=== PATIENT | female | born 1950 | race Caucasian/White ===

== ENCOUNTER 2022-02-14 11:47 | Outpatient (REF) | payer MEDICARE, OTHER, SELFPAY ==
[2022-02-14 14:16] LABS: Blood Urea Nitrogen 17 mg/dL (9-16); Estimated Glomerular Filt Rate > 60
== END 2022-02-14 11:48 | disposition home or self-care (01) ==
LOC: HO.10HDL 11:47
PROVIDERS: Visit Provider Otolaryngology
DX: H91.92 Unspecified hearing loss, left ear (principal)
CPT/HCPCS: 36415; 82565; 84520

== ENCOUNTER 2022-02-27 11:01 | Outpatient (REF) | payer MEDICARE, OTHER, SELFPAY ==
--- NOTE | ~2022-02-27 | MR_ITS ---
EXAMINATION: MR BRAIN WITHOUT CONTRAST CLINICAL INFORMATION: Left-sided hearing loss. Left-sided acoustic neuroma. COMPARISON: None available. TECHNIQUE: Multiplanar, multisequence MRI of the brain was obtained using a skull base protocol without contrast. The patient declined contrast at the time of exam. FINDINGS: No focal restricted diffusion is demonstrated to suggest acute or subacute cerebral ischemia. No evidence of acute or chronic hemorrhagic products on heme-sensitive imaging. Scattered periventricular and deep white matter T2 FLAIR hyperintensities consistent with mild underlying microangiopathy. The ventricles are normal in morphology and size. No abnormal mass effect. No midline shift. Normal appearance of the pituitary gland. The cerebellar tonsils are mildly low lying, positioned 0.4 cm below the foramen magnum. The CSF space of the foramen magnum is maintained. No mass of the cerebellopontine angles. Normal appearance of the cranial nerve V, VII, and VIII nerve roots. No edema or vascular loops near the nerve root entry sites. Normal appearance of the internal auditory canals. Normal appearance of the labyrinthine structures without loss of T2 signal. Normal arterial and venous vascular flow voids are present. Normal, homogeneous marrow signal. Mild mucosal thickening of the paranasal sinuses. No signal abnormalities within the mastoids. MR/MR head/brain wo con IMPRESSION: No contrast was utilized for this exam. 1. No acute intracranial abnormalities. 2. Mild underlying microangiopathy. 3. No additional MRI abnormalities to explain the patient's symptoms.
== END 2022-02-27 11:02 | disposition home or self-care (01) ==
LOC: HO.MRI 11:01
PROVIDERS: Visit Provider Otolaryngology
DX: D33.3 Benign neoplasm of cranial nerves (principal); H90.42 Sensorineural hearing loss, unilateral, left ear, with unrestricted hearing on the contralateral side
CPT/HCPCS: 70551

== ENCOUNTER 2022-04-18 08:47 | Outpatient (REF) | payer MEDICARE, OTHER, SELFPAY ==
--- NOTE | ~2022-04-18 | MR_ITS ---
EXAMINATION: MR ANGIOGRAPHY HEAD CLINICAL INFORMATION: Pulsatile tinnitus and headache. COMPARISON: MRI scan of the brain 02/27/2022. TECHNIQUE: 3D time of flight MR angiography of the intracranial vasculature was obtained. Reformatted images were generated at the technologist workstation and source images were reviewed along with rotating MIPs. The degree of stenosis is based off NASCET criteria. FINDINGS: In the anterior circulation, the distal internal carotid arteries within the neck appear normal. The intracranial internal carotid arteries and their bifurcations appear normal. The A1 segment of the right anterior cerebral artery is uniformly thinner compared to the left, which is a normal variant. The bilateral middle and left anterior cerebral arteries demonstrate normal caliber with no evidence of focal stenosis, aneurysm or vascular malformation. The anterior communicating artery is normal. In the posterior circulation, the left vertebral artery is dominant, and the right vertebral artery ends primarily in the PICA. The vertebral arteries intradurally are patent bilaterally. The basilar artery appears normal. The posterior cerebral arteries have normal caliber; there is a origin of the right posterior cerebral artery. MR/MR angio head wo con IMPRESSION: 1. MR angiography of the intracranial circulation does not demonstrate focal stenosis, aneurysm or vascular malformation. The study is within normal limits.
== END 2022-04-18 08:48 | disposition home or self-care (01) ==
LOC: HO.MRI 08:47
PROVIDERS: Visit Provider Internal Medicine
DX: H93.A9 Pulsatile tinnitus, unspecified ear (principal); G44.52 New daily persistent headache (NDPH)
CPT/HCPCS: 70544

== ENCOUNTER 2022-04-26 14:44 | Outpatient (REF) | payer MEDICARE, OTHER, SELFPAY ==
--- NOTE | ~2022-04-26 | US_ITS ---
EXAMINATION: US EXTRACRANIAL CAROTID DUPLEX, BILATERAL CLINICAL INFORMATION: TIA. COMPARISON: None available. TECHNIQUE: Real-time ultrasound and Doppler techniques (integrating B-mode 2-D vascular images, Doppler spectral analysis and color-flow Doppler imaging) were utilized to interrogate the extracranial carotid arteries, the vertebral arteries and proximal subclavian arteries bilaterally. The degree of stenosis is determined by criteria similar to NASCET. FINDINGS: RIGHT SIDE: 1. There is no atherosclerotic plaque seen in the bifurcation/proximal ICA region. 2. The common carotid artery PSV proximally is 124 cm/s and distally 70 cm/s. 3. The proximal internal carotid artery velocities are 78 cm/s systolic and 22 cm/s diastolic. 4. The proximal external carotid artery PSV is 103 cm/s. 5. The vertebral artery shows antegrade flow. 6. The subclavian artery waveforms are normal. LEFT SIDE: 1. There is no atherosclerotic plaque seen in the bifurcation/proximal ICA region. 2. The common carotid artery PSV proximally is 107 cm/s and distally 83 cm/s. 3. The proximal internal carotid artery velocities are 99 cm/s systolic and 32 cm/s diastolic. 4. The proximal external carotid artery PSV is 93 cm/s. 5. The vertebral artery shows antegrade flow. 6. The subclavian artery waveforms are normal. US/US carotid duplex BI IMPRESSION: 1. RIGHT: Normal right internal carotid artery without atherosclerotic plaque or hemodynamically significant stenosis. 2. LEFT: Normal left internal carotid artery without atherosclerotic plaque or hemodynamically significant stenosis.
== END 2022-04-26 14:45 | disposition home or self-care (01) ==
LOC: HO.US 14:44
PROVIDERS: Visit Provider Internal Medicine
DX: G45.9 Transient cerebral ischemic attack, unspecified (principal)
CPT/HCPCS: 93880

== ENCOUNTER 2022-12-05 10:57 | Outpatient (REF) | payer MEDICARE, OTHER, SELFPAY ==
--- NOTE | ~2022-12-05 | XR_ITS ---
EXAMINATION: XR KNEE, LEFT CLINICAL INFORMATION: Pain COMPARISON: None available. TECHNIQUE: Three views of the left knee. FINDINGS: No acute visible fracture or dislocation. Mild multicompartment degenerative changes. Joint space alignment are otherwise maintained. No large knee joint effusion. Soft tissues are unremarkable. XR/XR knee LT 3V IMPRESSION: 1. No acute visible fracture or dislocation. 2. Mild multicompartment degenerative changes.
== END 2022-12-05 10:58 | disposition home or self-care (01) ==
LOC: HO.HOSX 10:57
PROVIDERS: Visit Provider Orthopaedic Surgery
DX: M25.562 Pain in left knee (principal)
CPT/HCPCS: 73562; 99202

== ENCOUNTER 2022-12-05 13:50 | Outpatient (AMB) | payer MEDICARE, OTHER, SELFPAY ==
--- NOTE | 2022-12-05 14:00 | MHC.OFFVIS ---
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 Patient reports on 08/08/22 she was sitting with her knee bent with getting up she had severe pain. States pain located at the anterior, posterior and lateral aspect of knee. She will have snapping with certain movements of leg. She will have stiffness and unable to perform certain yoga exercises. Finds little to no relief with Tylenol and icing. She is unable to take Motrin due to CLL. She has done physical therapy exercises which aggravated pain. Patient states that her knee will snap several times per day. Allergies Penicillins Allergy (Verified 12/05/22 14:09) Hives Sulfa (Sulfonamide Antibiotics) Allergy (Verified 12/05/22 14:09) Hives Medication List - Last Reconciled 12/05/22 by Arvind Pack MD lorazepam 0.5 mg PO DAILY PRN [facility] Social History (Updated 12/05/22 @ 14:09 by Batool Quiles Elvia) Patient Tobacco Use Status: Never used Tobacco Current occupational status: unemployed Physical Exam Vital Signs: BMI result Body Mass Index 23.0 Const Other: Well-nourished well-developed very friendly female awake alert and oriented x3 in no acute distress Extrem Other: Left knee examination shows a minimal effusion, minimal crepitus with range of motion, tenderness along her medial joint line, positive Laverne's test Results Reviewed Results Reviewed: X-rays of the patient's left knee show minimal diffuse joint space narrowing, no acute bony abnormalities Assessment & Plan Assessment & Plan (1) Left knee pain: Code(s): M25.562 - Pain in left knee Plan: Ms. Guillermo presents with left knee pain and mechanical symptoms most likely due to a tear of her medial meniscus. Thus, I will send the patient for MRI of her left knee for further evaluation. I will see her back once the MRI is completed to discuss the findings and treatment options. She will continue with her activity modifications in the meantime. I spent 20 minutes in reviewing the patient's records and imaging studies, seeing the patient and documenting in the medical record. Orders: Orders MR knee LT wo con Today S83.8X2A - Sprain of other specified parts of left knee, initial encounter Coding Level of Care Code New Pt Level 2 (66490) Diagnoses Left knee pain M25.562
[2022-12-05 14:08] VITALS: BMI 23.0
== END 2022-12-05 14:43 | disposition home or self-care (01) ==
PROVIDERS: Visit Provider Orthopaedic Surgery
DX: M25.562 Pain in left knee (principal)
CPT/HCPCS: 99202

== ENCOUNTER 2023-01-10 18:09 | Outpatient (REF) | payer MEDICARE, OTHER, SELFPAY ==
--- NOTE | ~2023-01-10 | MR_ITS ---
EXAMINATION: MR KNEE WITHOUT CONTRAST, LEFT CLINICAL INFORMATION: Left knee pain and crepitus. COMPARISON: Left knee radiographs dated 12/05/2022. TECHNIQUE: MRI of the left knee without contrast was performed using routine sequences on a high-field scanner. FINDINGS: MENISCI: Medial Meniscus: Intrasubstance degenerative signal within the meniscal body and posterior horn with an oblique tibial articular surface tear contacting the midportion of the posterior body and inner margin of the posterior horn. Lateral Meniscus: Intact. LIGAMENTS: Cruciate: Intact. Collateral: Intact. EXTENSOR MECHANISM: Intact. ARTICULAR CARTILAGE/BONE: Patellofemoral Compartment: Intact articular cartilage. Medial Compartment: Intact articular cartilage. Lateral Compartment: Intact articular cartilage. JOINT FLUID AND BURSAE: Trace joint effusion and trace Lopez's cyst. MR/MR knee LT wo con IMPRESSION: 1. Intrasubstance degenerative signal within the medial meniscal body and posterior horn with an oblique tibial articular surface tear contacting the midportion of the posterior body and inner margin of the posterior horn. 2/ Trace joint effusion and trace Lopez's cyst.
== END 2023-01-10 18:10 | disposition home or self-care (01) ==
LOC: HO.MRI 18:09
PROVIDERS: Visit Provider Orthopaedic Surgery
DX: S83.8X2A Sprain of other specified parts of left knee, initial encounter (principal)
CPT/HCPCS: 73721

== ENCOUNTER 2023-01-23 09:03 | Outpatient (AMB) | payer MEDICARE, OTHER, SELFPAY ==
--- NOTE | 2023-01-23 09:10 | A.OFFVIS_ITS ---
Intake Vital Signs 01/23/23 09:23 Height 5 ft 3 in Weight 130 lb BMI 23.0 Intake Visit Reasons: OV- LT knee MRI review Intake Note: Angella a 72 year old female presents today for an MRI review of left knee. She reports intermittent discomfort along the medial and anterior aspects of her left knee. She states that she has good days and bad days. She denies any constant pain. She states that at times she is able to sit on her foot without any discomfort. Her knee does seem to bother her later after she sits on her foot. She has not been doing much yoga. She has been swimming for exercise which does not seem to aggravate her knee. Allergies Penicillins Allergy (Verified 01/23/23 09:23) Hives Sulfa (Sulfonamide Antibiotics) Allergy (Verified 01/23/23 09:23) Hives Medication List - Last Reconciled 01/23/23 by Arvind Pack MD lorazepam 0.5 mg PO DAILY PRN PFSH Social History Patient Tobacco Use Status: Never used Tobacco Current occupational status: unemployed Physical Exam Vital Signs: BMI result Body Mass Index 23.0 Const Other: Well-nourished well-developed very friendly female awake alert and oriented x3 in no acute distress Extrem Other: Left knee examination shows minimal discomfort with range of motion, tenderness along her medial and lateral joint lines Results Reviewed Results Reviewed: MRI of the patient's left knee shows mild diffuse joint space narrowing as well as a tear along the anterior aspect of the lateral meniscus Assessment & Plan Assessment & Plan (1) Left knee pain: Code(s): M25.562 - Pain in left knee Plan Ms. Chatman presents with intermittent left knee pain due to early degenerative joint disease as well as a tear of her lateral meniscus. I had a lengthy discussion with the patient regarding the treatment options. We will hold off on an injection and arthroscopic surgery for now. Activity modific ations were discussed at length with the patient. She will follow up with me on an as-needed basis should her symptoms worsen in any way. I spent 20 minutes in reviewing the patient's records and imaging studies, seeing the patient and documenting in the medical record. Coding Level of Care Code Est Pt Level 2 (11265) Diagnoses Left knee pain M25.562
[2023-01-23 09:23] VITALS: BMI 23.0
== END 2023-01-23 09:35 | disposition home or self-care (01) ==
PROVIDERS: Visit Provider Orthopaedic Surgery
DX: M17.12 Unilateral primary osteoarthritis, left knee (principal); S83.282A Other tear of lateral meniscus, current injury, left knee, initial encounter
CPT/HCPCS: 99213

== ENCOUNTER → 2023-01-23 09:03 | Outpatient (BNVA) | payer MEDICARE, OTHER, SELFPAY | PROVIDERS: Visit Provider Orthopaedic Surgery | DX: M25.562 Pain in left knee (principal) | CPT/HCPCS: 99212 ==

== ENCOUNTER 2023-04-18 09:23 | Outpatient (REF) | payer MEDICARE, OTHER, SELFPAY ==
--- NOTE | ~2023-04-18 | CT_ITS ---
EXAMINATION: CT ABDOMEN AND PELVIS WITH CONTRAST CLINICAL INFORMATION: Abdominal pain. COMPARISON: None available. TECHNIQUE: Multidetector volumetric images were obtained from the superior aspect of the liver through the pubic symphysis following administration 85 mL of Omnipaque 350 intravenous contrast. Sagittal and coronal reformatted images were obtained on the technologist's workstation. Oral contrast: Yes This CT examination was performed using dose optimization techniques as appropriate, variously including the following: *Automated exposure control *Adjustment of mA and/or kV according to patient size (this includes techniques or standardized protocols for targeted exams where dose is matched to indication/reason for exam; i.e. extremities or head) *Use of iterative reconstruction technique DLP: 317 mGy-cm FINDINGS: LUNG BASES: The visualized lung bases are unremarkable. LIVER, GALLBLADDER, AND BILIARY TREE: The dome of the liver is not included in the [id number], but otherwise the liver appears normal. No discrete liver mass or ductal dilatation. The gallbladder is unremarkable with no evidence of radiopaque gallstones, gallbladder wall thickening, or obvious pericholecystic inflammatory changes. PANCREAS: No discrete pancreatic mass or pancreatic ductal dilatation. SPLEEN: The spleen appears mildly enlarged measuring up to 12.5 cm. ADRENAL GLANDS: No adrenal mass. KIDNEYS AND URETERS: The kidneys are normal in size, shape, and attenuation. No hydronephrosis, hydroureter, or calculi seen. No perinephric stranding. BLADDER: Unremarkable. GASTROINTESTINAL TRACT: The small and large bowel are normal in caliber. No acute inflammatory changes. No discrete bowel mass is seen. The appendix appears normal. ABDOMINAL WALL: No significant hernia is appreciated. LYMPH NODES: Mildly prominent lymph nodes measuring up to 1.3 cm celiac, 1.4 cm paraaortic, 1.2 cm left external iliac chain, 1.6 cm right external iliac chain. These may represent a low-grade lymphoproliferative disorder. VASCULAR: Mild aortic atherosclerosis. No aneurysm. PELVIC VISCERA: The uterus and adnexa are unremarkable. OSSEOUS STRUCTURES: Unremarkable. CT/CT abdomen pelvis w IV con IMPRESSION: Mildly prominent abdominal pelvic lymph nodes and mild splenomegaly. This raises the possibility of an underlying chronic lymphoproliferative disorder. Clinical correlation is necessary. No acute findings correlate with abdominal pain. Fleischner guidelines were followed.
[2023-04-18] MEDS: Barium Sulfate Oral (Berry) 450 ML ORAL.SUSP 900 ML PO (12:30)
[2023-04-18] MEDS: iohexoL 350 MG/ML 100 ML INFUS..BTL 85 ML IV (12:30)
[2023-04-19 06:25] LABS: Creatinine POC 0.8 mg/dL (0.5-1.4); GFR POC > 60
== END 2023-04-18 09:24 | disposition home or self-care (01) ==
LOC: HO.CT 09:23
PROVIDERS: PCP Physician Assistant; Visit Provider Physician Assistant
DX: R10.9 Unspecified abdominal pain (principal)
CPT/HCPCS: 74177; 82565; Q9967

== ENCOUNTER 2023-09-03 11:00 | Outpatient (RCR) | payer MEDICARE, OTHER, SELFPAY | END 2023-09-03 12:10 | disposition home or self-care (01) | LOC: HO.PT 11:00 | PROVIDERS: PCP Physician Assistant; Visit Provider Nurse Practitioner Women's Health | DX: M53.3 Sacrococcygeal disorders, not elsewhere classified (principal) | CPT/HCPCS: 97110; 97140; 97162; 97164; 97535 ==

== ENCOUNTER 2023-09-13 12:05 | Emergency (ER) | payer MEDICARE, OTHER, SELFPAY ==
--- NOTE | ~2023-09-13 | US_ITS ---
EXAMINATION: US VENOUS ULTRASOUND WITH DOPPLER LOWER EXTREMITY, RIGHT CLINICAL INFORMATION: Calf pain with posterior knee pain COMPARISON: None available. TECHNIQUE: Ultrasound of the deep veins is performed from the hip to the calf with compression sonography and color and pulse Doppler assessment. Spectral analysis with color-flow imaging is performed. FINDINGS: There is normal venous compression and respiratory variation and augmented flow. The visualized common femoral vein, superficial femoral vein, profunda femoral vein, popliteal vein, and the trifurcation region shows no evidence of deep venous thrombosis. There is no significant popliteal fossa cyst. The contralateral left common femoral vein appears normal. If the patient's symptoms persist, followup ultrasound in 5 days 7 days might be of value to exclude proximal propagation from a non-visualized calf vein. US/US venous duplex LE RT IMPRESSION: No DVT demonstrated in the right lower extremity.
[2023-09-13 12:25] VITALS: BP 166/77; PULSE 88; RESP 18; TEMP 36.7; O2SAT 98; BMI 23.2
--- NOTE | 2023-09-13 12:25 | ED_ITS ---
HPI - General Adult General Chief complaint: Extremity Injury, Lower Stated complaint: DVT? Time Seen by Provider: 09/13/23 15:51 Source: patient Mode of arrival: ambulatory Limitations: no limitations History of Present Illness ED Provider: GHAZALA SALDAÑA PA-C HPI narrative: 72 year old female with pmhx significant for CLL presents to the ED today for evaluation of right calf pain s/p flying from [facility] to [place] on Sunday (2 days ago). Endorses pain to right calf/ posterior knee exacerbated with ambulation. Not taking any OTC pain meds at home. Denies chest pain, shortness of breath, cough, hemoptysis. Related Data Home Medications ?Medication ?Instructions ?Recorded ?Confirmed lorazepam 0.5 mg tablet 0.5 mg PO DAILY PRN 12/05/22 01/23/23 Allergies Allergy/AdvReac Type Severity Reaction Status Date / Time Penicillins Allergy Hives Verified 09/13/23 12:29 Sulfa (Sulfonamide Allergy Hives Verified 09/13/23 12:29 Antibiotics) Review of Systems Review of Systems: Constitutional: No fever, chills, fatigue, night sweats, weight changes ENT/Mouth: No ear pain, hearing loss, nasal congestion, sinus pain, rhinorrhea, sore throat Eyes: No eye pain, swelling, redness, vision changes, discharge Cardio: No chest pain, palpitations, SNELL, orthopnea, peripheral edema Pulm: No SOB, cough, sputum, wheezing, dyspnea, hemoptysis GI: No nausea, vomiting, hematemesis, abdominal pain, diarrhea, constipation, hematochezia, melena : No irregular bleeding, dysuria, frequency, urgency, hesitancy, hematuria, flank pain, urinary flow changes, urinary incontinence or retention MSK: No back pain, neck pain, joint pain, myalgias, +right calf pain Skin: No lesions, rashes Neuro: No weakness, numbness, paresthesias, LOC, dizziness, headache Psych: No anxiety/panic, depression, SI/HI, AH/VH All other systems reviewed and are negative. [facility] Past Medical History Attestation statement: The following information was validated with the patient. Source: old records reviewed and nursing notes reviewed Social History Social History Patient Tobacco Use Status: Never used Tobacco Advance Directives: No Advance Directives Information Provided: No Do you have a plan to hurt others: No Plan Current occupational status: unemployed Physical Exam ED Vital Signs: Vital Signs - 24 hr 09/13/23 12:25 09/13/23 15:55 09/13/23 16:01 Temperature 98.1 F 97.3 F 97.3 F Pulse Rate 88 66 66 Respiratory Rate 18 16 16 Blood Pressure 166/77 H 138/63 138/63 Pulse Oximetry 98 98 98 Oxygen Delivery Method Room Air Room Air Room Air BMI result Body Mass Index 23.2 Vital signs stable Const General: cooperative, healthy appearing, comfortable and no acute distress Orientation/consciousness: patient oriented x3 Limitations: no limitations HENMT Head: Yes normal to inspection, Yes No palpable skull fracture present, Yes normocephalic and Yes atraumatic Eyes General: appearance normal, both eyes and all related structures Conjunctivae: conjunctivae normal Sclerae: sclerae normal EOM: EOMs intact bilaterally Neck Neck: Yes normal visual inspection Resp Effort & Inspection: normal respiratory effort and able to speak in complete sentences Auscultation: clear to auscultation bilaterally Cardio Other: No peripheral edema Rate: regular rate Rhythm: regular rhythm Skin General skin exam: no rashes or lesions noted Neuro General: patient oriented x3, gait normal, tone normal and no focal motor deficits Extrem Other: + right lower extremity without noted swelling or overlying skin changes including erythema or ecchymosis. Tender to palpation of right calf and posterior right knee without palpable mass or deformity. Full ROM intact to right knee and right ankle. Ambulating with steady gait. No peripheral edema. No pedal edema. Course Course Course Narrative: This is a Rapid Medical Examination (RME) performed by Nikki Saldaña PA-C in triage. Full HPI, ROS, assessment and treatment plan per primary provider in the Main ED. 72 yo female hx of CLL here w/ right calf pain s/p flying to [place] from [place] on Sunday (2 days ago). admits to pain w/ walking. denies cp, sob, cough, hemoptysis. + ttp of posterior right knee. minimal right calf tenderness. ambulating w/ steady gait. Plan: venous duplex Reevaluation(s) Reevaluation #1: 1600-- venous duplex of right lower extremity does not demonstrate VTE or popliteal fossa cyst. Discussed with patient. Advised anti-inflammatories for pain/discomfort. Advised to follow up with PCP. Patient has remained stable throughout ED visit today. Discussed worrisome signs and symptoms and when to return to the ED. All questions answered at this time. Patient is agreeable with disposition and stable for discharge. Medical Decision Making Medical Decision Making MDM Narrative: 72 year old female with pmhx significant for CLL presents to the ED today for evaluation of right calf pain s/p flying from [facility] to [place] on Sunday (2 days ago). Patient initially hypertensive, vitals otherwise WNL. She is nontoxic-appearing and in no acute distress. On exam, right lower extremity without noted swelling or overlying skin changes including erythema or ecchymosis. Tender to palpation of right calf and posterior right knee without palpable mass or deformity. Full ROM intact to right knee and right ankle. Ambulating with steady gait. No peripheral edema. No pedal edema. Differential diagnosis includes DVT, msk sprain/strain, bishop's cyst. Unlikely nv compromise, threat to limb, compartment syndrome, fracture, dislocation. Plan for venous duplex and re-evaluation. Differential Diagnosis Differential Diagnoses: The differential diagnosis associated with the presentation includes as above. Admission/Observation not indicated. Social Determinants Patient?s care significantly limited by Social Determinants of Health including: Other Social Determinant of Health Critical Care Time Critical Care Time Critical Care Time: No Discharge Plan Discharge Clinical Impression: Pain of right calf Patient Disposition: Home, Self-Care Instructions: Leg Pain (ED) Additional Instructions: The ultrasound of your right leg does not demonstrate clot or cyst. You may take tylenol/ motrin at home for pain/ discomfort. Follow up with PCP as needed. Return with new or worsening symptoms. In the case of an emergency call 911. Prescriptions: No Action lorazepam 0.5 mg tablet 0.5 mg PO DAILY PRN Interventions: ED Discharge Assessment Last Done: 09/13/23 16:01 Discharge Date/Time: 09/13/23 16:02 Print Language: Spanish
[2023-09-13 15:55] VITALS: BP 138/63; PULSE 66; RESP 16; TEMP 36.3; O2SAT 98
[2023-09-13 16:01] VITALS: BP 138/63; PULSE 66; RESP 16; TEMP 36.3; O2SAT 98
== END 2023-09-13 16:02 | disposition home or self-care (01) ==
PROVIDERS: Emergency Provider Student in an Organized Health Care Education/Training Program; PCP Physician Assistant
DX: M79.661 Pain in right lower leg (principal)
CPT/HCPCS: 93971; 99282; 99284

== ENCOUNTER 2024-03-11 12:54 | Outpatient (REF) | payer SELFPAY ==
--- OUTSIDE RECORDS SUMMARY | 2024-03-11 13:18 | XMS_ITS | Data Portability ---
Author Organization [facility] S GUALBERTO bateman SURGERY - [facility] Address [address] [place] [address] Assessment No assessment recorded. Plan of Treatment Reminders Order Date Submit Date Provider Last Modified By Organization Details Last Modified Time Details Appointments None recorded. Lab None recorded. Referral None recorded. Procedures None recorded. Surgeries None recorded. Imaging audiogram 2017 018 [email or web address] [place] [address], [place], [address], 8 15:36:40 tympanogra m 2017 018 [email or web address] [place] - [address], [place], [address], 8 15:36:40 audiogram 2019 020 MARY [place] - [address], [place], [address], 0 13:53:35 audiogram + tympanogra m 2020 021 [email or web address] [place] - [address], [place], [address], 1 15:58:28 Medication Orders Zithromax Z-Rito 250 mg tablet 2019 020 INTERFACE Not available 0 14:37:35 Patient TargetsNo targets recorded. Patient Instructions Encounter Date Encounter Id Patient Instructions Last Modified By Organization Details Last Modified Time 07/31/2017 [id number] 1. f/dejan 2. Annual audio 3. HAC in 6 months [email or web address] Not available 07/31/2017 15:01:13 Reason for Referral None Reported. Results Created Date Observation Date Name Description Value Unit Range Abnormal Flag Note LastModifiedBy Organization Detail LastModifiedTime 08/01/19 18 07/31/2017 tympa nogra m Right Type A Normal Not Available [place] - [address], [place], [address], 07/31/2017 15:00:19 08/01/19 18 07/31/2017 tympa nogra m Left Type A Normal Not Available [place] - [address], [place], [address], 07/31/2017 15:00:19 08/01/19 18 07/31/2017 audio gram Results: See Eyad zavala Result s Not Available [place] - [address], [place], [address], 07/31/2017 15:00:17 08/01/19 18 audio gram No observ ation record ed. BARCODE Not Available 2017 15:12:47 06/25/19 19 audio gram No observ ation record ed. BARCODE Not Available 2018 15:08:41 03/20/19 20 audio gram No observ ation record ed. BARCODE Not Available 2019 15:08:55 09/17/19 21 audio gram No observ ation record ed. BARCODE Not Available 2020 16:22:58 Result Notes None recorded. Problems Name Problem SNOMED Code Status Onset Date Resolution Date Notes Provider Name and Address Organization Details Recorded Time Sensorineu ral hearing loss 33436928 Active 2015 Not Available [facility] 7 09:39:51 Tinnitus of left ear 4158191329478 Active 2015 Not Available [facility] 7 09:39:51 Eustachian tube disorder 59037479 Active 2015 Not Available [facility] 7 09:39:51 Sensorineu ral hearing loss 10171381 Active 2014 Not Available [facility] 7 09:39:55 Deviated nasal septum 864658986 Active 2014 Not Available [facility] 7 09:39:55 Chronic rhinitis 86183488 Active 2014 Not Available [facility] 7 09:39:55 Impacted cerumen 22541229 Active 2015 Not Available [facility] 7 09:39:55 Tinnitus of left ear 7208602052074 Active 2015 Not Available [facility] 7 09:39:55 Dizziness and giddiness 665474630 Active 2015 Not Available [facility] 7 09:39:55 Problem Notes None recorded. Procedures Surgical History Date Name Laterality Status Provider Name and Address Organization Details Recorded Time 0 Audiogram Results [id number] completed DEBBIE JACOBS [facility]. 03/20/2019 16:43:25 0 Tympanogram Results [id number] completed DEBBIE JACOBS [facility]. 03/20/2019 16:43:35 8 Hearing Aid Fitting Follow Up completed DEBBIE JACOBS [facility]. 07/31/2017 14:58:17 8 Hearing Aid Fitting Follow Up completed DEBBIE JACOBS [facility]. 07/24/2017 14:09:14 7 Hearing Aid Fitting Follow Up completed DEBBIE JACOBS [facility]. 01/11/2017 14:28:39 7 Hearing Aid Fitting Follow Up completed DEBBIE JACOBS [facility]. 09/12/2016 16:18:31 7 Audio Results completed DEBBIE JACOBS [facility]. 09/12/2016 16:16:25 Imaging Results Imaging Date Name Status LastModified by Organiz ation Details LastModified Time 07/31/2017 audiogram completed BARCODE Information no t available 07/31/2017 15:12:47 06/24/2018 audiogram completed BARCODE Information no t available 06/24/2018 15:08:41 03/20/2019 audiogram completed BARCODE Information no t available 03/20/2019 15:08:55 09/16/2020 audiogram completed BARCODE Information no t available 09/16/2020 16:22:58 Procedure Notes None recorded. Medical Equipment None Reported. Allergies Allergen ID Allergen Name Allergen Category Reaction Reaction Severity Criticality Documentation Date Start Date Code Code System Note Provider Name and Address Organization Details Recorded Time 511710 Product containin g penicilli n and antibioti c (product) medicatio n Not available Not available Not available 07/12/20162014 36099 05 SNOMED Not Available [facility] 7 08:27:43 825766 Substance with sulfonami de structure and antibacte rial mechanism of action (substanc e) medicatio n Not available Not available Not available 07/12/20162014 95737 8003 SNOMED Not Available [facility] 7 08:27:43 446328 Levaquin medicatio n Not available Not available Not available 09/01/2016 96200 [address] Rx[address] [facility]. 7 11:12:58 Medications Name Sig Start Date Stop Date Status Note LastModified by Organization Details LastModified Time doxycycline hyclate 100 mg capsule Take 1 capsule twice a day by oral route. 03/20 completed Not Available Not Available Not Available clindamycin HCl 300 mg capsule 03/20 completed Not Available Not Available Not Available triamcinolo ne acetonide 0.5 % topical cream 09/11 completed Not Available Not Available Not Available azithromyci n 250 mg tablet TAKE 2 TABLETS BY MOUTH TODAY, THEN TAKE 1 TABLET DAILY FOR 4 DAYS active Not Available Not Available No t Available fluconazole 150 mg tablet active Not Available Not Available Not Available valacyclovi r 1 gram tablet TAKE 1 TABLET BY MOUTH EVERY 8 HOURS FOR 7 DAYS active Not Available Not Available No t Available prednisone 20 mg tablet 03/20 completed Not Available Not Available Not Available alendronate 70 mg tablet TAKE 1 (ONE) TABLET BY MOUTH WEEKLYWIT H PLENTY OF WATER STAY UPRIGHT FOR 30 MIN AFTER INGESTION . active Not Available Not Available No t Available fluorouraci l 5 % topical cream 09/11 completed Not Available Not Available Not Available valacyclovi r 500 mg tablet active Not Available Not Available Not Available triamcinolo ne acetonide 0.1 % topical cream active Not Available Not Available Not Available acyclovir 800 mg tablet active Not Available Not Available Not Available prednisone 10 mg tablets in a dose pack TAKE 6 TABLETS ON DAY 1 DIRECTED ON PACKAGE AND DECREASE BY 1 TAB EACH DAY FOR A TOTAL OF 6 DAYS active Not Available Not Available No t Available alprazolam 0.5 mg tablet TAKE 1 TABLET BY MOUTH AT BEDTIME NEEDED FOR SLEEP MAY REPEAT DOSE IN DAYTIME IF NEEDED active Not Available Not Available No t Available alprazolam 0.25 mg tablet TAKE 1 TABLET BY MOUTH AT BEDTIME NEEDED SLEEP active Not Available Not Available No t Available betamethaso ne valerate 0.1 % topical cream APPLY A THIN LAYER TO THE AFFECTED AREA(S) BY TOPICAL ROUTE 2XPER DAY NEEDED ITCHING/I NFLAMMATI ON active Not Available Not Available No t Available cephalexin 500 mg capsule TAKE 1 CAPSULE BY MOUTH THREE TIMES A DAY FOR 7 DAYS active Not Available Not Available No t Available erythromyci n 5 mg/gram (0.5 %) eye ointment active Not Available Not Available Not Available methylpredn isolone 4 mg tablets in a dose pack 03/20 completed Not Available Not Available Not Available cefdinir 300 mg capsule 03/20 completed Not Available Not Available Not Available doxycycline hyclate 100 mg tablet TAKE 1 TABLET BY MOUTH TWICE A DAY FOR 10 DAYS active Not Available Not Available No t Available Xanax 02/11 completed Not Available Not Available Not Available Zyrtec 10 mg capsule take 1 by Oral route once 02/11 completed Not Available Not Available Not Available Flonase Allergy Relief 50 mcg/actuati on nasal spray,suspe nsion [place] 2 sprays every day by intranasa l route. 2016 active Not Available Not Available Not Avai lable Otovel 0.3 %-0.025 % (0.25 mL) ear solution INSTILL 0.25 MILLILITE R INTO AFFECTED EAR(S) BY OTIC ROUTE EVERY 12 HOURS FOR 7 DAYS 03/20 completed Not Available Not Available Not Available Shingrix (PF) 50 mcg/0.5 mL intramuscul ar suspension, kit active Not Available Not Available Not Available Vitals Date Recorded Body height Heart rate Systolic blood pressure Diastolic blood pressure Provider Name and Address Organization Details Last Updated DateTime 03/20/2019 160.02 cm 77 /min 121 mm[Hg] 71 mm[Hg] ANGELINA JOSE [facility]. 03/20/2019 13:42:28 Date Recorded Body height Provider Name an d Address Organization Details Last Updated DateTime 09/15/2020 160.02 cm Maria Luisa Hernandez [facility]. 09/15/2020 11:22:25 Social History Question Answer Notes LastModified by Organizat ion Details LastModified Time What Was The Date Of Your Most Recent Tobacco Screening? 03/20/2019 [email or web address] Information not available 03/20/2019 Sex: Unknown Functional Status None recorded. Mental Status None recorded. Family History Nothing Reported. Medical History Condition Response Coronary Artery Disease N Gout N Blood Diseases N Tonsil Infections Y Emphysema N Hives N Hospital Admission Other Than N Wheezing N Depression Y COPD N Glaucoma N Pneumonia N Developmental or Behavioral Disorders N Defects or Inherited Disease N Nasal or Sinus Problems N Pacemaker N Difficulty Swallowing Y High Blood Pressure/Hypertension N Anesthesia Complications N Anxiety Disorder N Muscle, Joint, or Bone Problems N Obesity N Vision or Eye Problems N Hearing Loss Y Arthritis Y Head Injury/Concussion N Blood Clot N Congenital Anomalies N Dysphagia N Acid Reflux (GERD) N Cancer Y Melanoma Y Stroke N Snoring N Hoarseness N Bladder or Kidney Problems Y Shortness of Breath N High Cholesterol N Skin Cancer N Headaches Y Fibromyalgia Y Speech Delay N Kidney Disease N Allergies/Hayfever N Pituitary Disorder N Squamous Cell Carcinoma N Heart Conditions N Migraines Y Thyroid Problems N Developmental Delay N ADD/ADHD N Skin Problems N Anemia N Immune System Disorder N Constipation N Heart Attack (NM) N Other Skin Condition N Mental Illness N Diabetes Y Bedwetting N Bleeding Disorder Y Food Allergy N Seizures/Epilepsy N Epistaxis N Tuberculosis N AIDS/HIV N Eczema N Tinnitus N Asthma N Nasal polyps N Basal Cell Carcinoma Y Vertigo N Sleep Disorder Y Hepatitis N Heart Disease N Bronchitis N Pulmonary Embolism N PCOS N Chronic Ear Infections Y Chicken Pox Y Autism Spectrum Disorder (ASD) N Gynecological HistoryNo gynecological history recorded. Obstetrics History GPAL:G 0 P 0 0 0 0 Past Encounters Encounter ID Performer Location Encounter Start Date Encounter Closed Date Diagnosis/Indication Diagnosis SNOMED-CT Code Diagnosis ICD10 Code Diagnosis Note [id number] CECILY MARTINEZ [facility] [place] - [address] [facility] [address] [place] [address] 09/01/2016 10:44:46 09/01/2016 11:47:17 Eustachian tube disorder 65381718 H69.92 [id number] ZOILA HUMPHRIES [facility] [place] - [address] [facility] [address] [place] [address] 09/11/2016 10:33:32 09/11/2016 12:52:47 Eustachian tube disorder 77745154 H69.92 Sensorineu ral hearing loss of bilateral ears 743380509 H90.3 Anterior c ervical lymphadenopathy 965751726 R59.0 [id number] [facility]RIES [facility] - [address] [facility] [address] [address] [place] [address] 09/12/2016 14:05:29 09/14/2016 08:24:49 Sensorineural hearing loss 57461905 H90.5 Sensorineu ral hearing loss of bilateral ears 914457306 H90.3 [id number] [facility] [address] [facility] [address] [place] [address] 01/11/2017 12:56:14 01/11/2017 15:27:13 [id number] DEBBIE LUIZ[facility] [place] - [address] [facility] [address] [place] [address] 07/24/2017 13:01:54 07/30/2017 03:46:22 [id number] DEBBIE LUIZ[facility] [place] - [address] [facility] [address] [place] [address] 07/24/2017 13:02:10 07/29/2017 21:25:40 [id number] DEBBIE PEGTATYANA-[facility] [place] [address] [address] 07/31/2017 14:20:59 07/31/2017 15:36:39 Sensorineural hearing loss of bilateral ears 497530257 H90.3 [id number] JASON CRUZ [facility] [place] - [address] [address] 03/20/2019 13:17:37 03/20/2019 14:56:32 Asymmetrical hearing loss 735124405 H91.92 very min asymmetry, testing with less asymmetry than expected by symptoms. will have hearing aids adjusted and have f/u with audiology. tentative f/u with me in 3 mos Sensorineu ral hearing loss of bilateral ears 835791279 H90.3 Otalgia of left ear 1089 406570 347637 H92.02 No infection noted. minimal erythema over the malleus but no middle ear fluid or pus. zpack with worsening (GI upset with omnicef in the past) [id number] [facility] [place] [facility] [address] [address] 03/20/2019 14:13:05 03/20/2019 16:08:01 Sensorineural hearing loss of bilateral ears 073390720 H90.3 [id number] JASON CRUZ [facility] [place] - [address] [address] 09/15/2020 11:16:13 09/16/2020 08:05:21 Sensorineural hearing loss 07002522 H90.5 cont CONTRERAS use. past audios reviewed Otalgia of right ear 112 1161972 841250 H92.01 intermitte nt. no clear etiology. unable to take NSAIDs. Conservati ve measures were discussed. consider imaging, discussed, hold off currently. she is moving soon ([facility]). plans to f/u here prn. would get imaging with persistent pain. Health Concerns Section Related Observation LastModified by Organization Detai ls LastModified Time None Recorded Concern Status LastModified by Organization Details LastModified Time None Recorded Advance Directives Directive None Recorded Payers Encounter Date Sequence Insurance Name Policy Number Policy Paulson Covered Member ID Paulson Member ID Guarantor Name 07/24/2017 1 [place] Angella A Compa [id number] Angella Compa 07/24/2017 2 [employer] Angella A Compa [id number] Angella Compa 07/31/2017 [place] Angella A Compa [id number] Angella Compa 07/31/2017 2 [employer] Angella A Compa [id number] Angella Compa 03/20/2019 1 [place] Angella A [place]a [id number] Angella Compa 03/20/2019 2 [employer] Angella A Compa [id number] Angella Compa 03/20/2019 1 [place] Angella A Compa [id number] Angella Compa 03/20/2019 2 [employer] Angella A Compa [id number] Angella Compa 09/15/2020 1 [place] Angella A Compa [id number] Angella Compa 09/15/2020 2 [employer] Angella A Compa [id number] Angella Compa Notes Date Note Type Note Provider Name and Address Organization Details Recorded Time 03/20/2019 text/html Ear Pain/InfectionRepor rita bypatient.Location: earache left;ear fullness left;loss of hearing bilateral(patient wears jaren hearing aids); c/o swollen gland back of neck Onset/Timing:progre ssively worse over last 3months Duration:ongoing fullness Quality:aching pain;dull pain Severity:interferin g with social activities;difficul ty understanding speech Context:recent sick contacts Alleviating factors:nothing gives relief Aggravating factors:nothing makes it worse Associated Symptoms:nasal congestion(mild);na libby discharge(mild); c/o feeling off balance Pt has been having some decreased hearing on the left for a few months but seems worse lately. some pain and worsening fullness. wears HAs. Flat tymps yesterday noted by audiology. Ct with CLL ARLENE Weiss - [facility]. 03/20/2019 15:14:35 09/15/2020 text/html 69 y/o female present today for hearing loss. sees audiology intermittently, has HAs. needs updated audio. some intermittent right otalgia, present for years, melissa if she presses on the area. has seen other providers as well. not nec bothersome when sleeping on it. ARLENE Weiss - [facility]. 09/15/2020 12:25:03 OBGyn Episode No OBEpisode recorded.
--- NOTE | 2024-03-12 09:14 | MHC.AU.HA1 ---
Hearing Aid Evaluation Date of Visit: 03/11/24 Historical Information: Description of Hearing: Mild sloping to moderately-severe sensorineural hearing loss, bilaterally Current personal amplification information: Phonak Audeo L90-RL from [facility] Summary: Fit with new Phonak HAs about one year ago at [facility] but has never been satisfied with them - speech not clear, constantly asking for repetition. Previous Linda user, reportedly never had issues with that pair. Has returned to [facility] multiple times for adjustments, has upcoming appointment next week but scheduled this appointment as 2nd opinion. Provided updated hearing test from Dr. Dolan's office. Per Joon Perales, harness installer at Dr. Dolan's office, recommended new HAs; however, he is reportedly retiring and did not want to get started with her. Considering purchasing back up pair. Advised current Phonak HAs are efl-mu-dco-line devices. Do not recommend new HAs at this time; however, Angella may be interested in trying a different child and youth program assistant. Discussed hearing loss, speech discrimination, importance of programming/real ear, effects of acoustic coupling, etc. Reportedly tried power dome but could not acclimate to physical fit. [facility] reportedly recommended CI, also tried [employer] system but ended up returning it. Do not have any previous evaluations to review/compare to current test. Still has service agreement through [facility]. Discussed options (e.g., returning to [facility], cleaning/reprogramming current HAs here, quoted $90.00). After 40 minute discussion, Angella opted to forgo any services today and ultimately decided to attend her appointment at [facility] next week but plans to return here if problems persist. Action Taken/Action Needed: Angella will schedule another appointment for Hearing Aid Problem and/or Hearing Aid Consultation pending results of upcoming appointment at [facility]. Primary Diagnosis: H90.3 Bilateral Sensorineural Hearing Loss Signature: Provider: Hector White, [facility]
== END 2024-03-11 12:55 | disposition home or self-care (01) ==
LOC: HO.HAP 12:54
PROVIDERS: PCP Physician Assistant; Visit Provider Otolaryngology
DX: Z13.89 Encounter for screening for other disorder (principal)

== ENCOUNTER 2024-06-23 09:56 | Emergency (ER) | payer MEDICARE, OTHER, SELFPAY ==
--- NOTE | ~2024-06-23 | CT_ITS ---
CLINICAL HISTORY: fall CT cervical spine without contrast Comparison: None Findings: Mild multilevel anterolisthesis and retrolisthesis, degenerative. No fracture. Multilevel degenerative change is most prominent at C5/C6 with moderate to severe central spinal canal stenosis. No epidural hematoma. Normal thickness of the prevertebral soft tissues. Mild apical scarring. Impression: No acute findings. This document has been electronically signed by: Ciera Boykin MD on 06/23/2024 17:43:02
--- NOTE | ~2024-06-23 | US_ITS ---
EXAMINATION: US TRIPLEX LOWER EXTREMITY, BILATERAL CLINICAL INFORMATION: Edema and pain both lower extremities. COMPARISON: None available. TECHNIQUE: Color-flow triplex imaging with spectral analysis and compression Doppler were performed on the bilateral lower extremities. FINDINGS: There is normal compressibility or respiratory augmentation throughout the interrogated veins of the lower extremities from the common femoral veins to the posterior tibialis veins. There is no Lopez's cyst. US/US venous duplex LE BI IMPRESSION: Occlusive thrombus extending throughout the interrogated veins of both lower extremities. Positive DVT exam. The supervisor microbiology technologists communicated with the requesting physician assistant laboratory director in the emergency department (Paulina Carlson) at the time of the examination. Electronically signed by: Louis French MD 06/23/2024 01:56 PM EDT
--- NOTE | ~2024-06-23 | MR_ITS ---
CLINICAL HISTORY: eval for bleeding. known met dz. MR Brain with and without gadolinium Comparison: CT/SR - CT HEAD/BRAIN WO IV CON - 06/23/24 16:21 EDT Findings: No restricted diffusion. Left paramedial valerie, peripherally enhancing centrally hemorrhagic lesion measuring 1.5 x 1.7 cm with moderate surrounding vasogenic edema. No additional lesion is seen. No midline shift. No hydrocephalus. Vascular flow voids are intact. Orbital contents are unremarkable. The sinuses and mastoid air cells are clear. No focal bone lesion. IMPRESSION: Left paramedial valerie 1.7 cm peripherally enhancing hemorrhagic lesion with moderate surrounding vasogenic edema. Given patient's history, findings most likely represent solitary metastatic disease. No ventriculomegaly or midline shift. No evidence of acute ischemia or acute intracranial hemorrhage. This document has been electronically signed by: Lucero Kee MD on 06/23/2024 21:28:05
--- NOTE | ~2024-06-23 | XR_ITS ---
EXAMINATION: XR LUMBOSACRAL SPINE CLINICAL INFORMATION: pain, injury COMPARISON: None available. TECHNIQUE: Three views of the lumbosacral spine. FINDINGS: No acute cortical disruption. No gross malalignment. Marginal osteophyte formation and endplate sclerosis at L3-4, L4-5 and L5-S1 level. No lytic or blastic lesions. XR/XR lumbar spine 2-3V IMPRESSION: Spondylosis without acute fracture or gross listhesis. Electronically signed by: Louis French MD 06/23/2024 01:54 PM EDT
--- NOTE | ~2024-06-23 | CT_ITS ---
CLINICAL HISTORY: metastatic CA, ++DVT study. ?R rib fx s p fall CTA chest with 3-D postprocessing Comparison: None Findings: Study quality is adequate for the diagnosis of pulmonary embolism. Acute bilateral pulmonary emboli are seen in distal main pulmonary arteries, vgnck-[id number]-left, and within the segmental and subsegmental arteries in each lobe, most prominent in the lower lobes. Heart size within normal limits. RV/LV ratio is normal. No calcified coronary artery disease. No aortic dissection or aneurysm. Trace calcified atherosclerotic disease. Mediastinal and hilar lymphadenopathy measures up to 1.1 cm in short axis. Right chest wall central venous catheter with the tip terminating at the cavoatrial junction. Trace biapical scarring. Right upper lobe nodule measuring 2.0 x 2.3 x 1.8 cm. Consolidation in the lower lobes at the lung bases, greater in the left lower lobe. Nodular/patchy consolidation in right middle lobe and lingula. Mild amount of bilateral ground-glass opacity. No pneumothorax or pleural effusion. No acute osseous or soft tissue abnormality. No right rib fractures or chest wall hematoma. No evidence of osseous metastatic disease. No acute pathology in the imaged portion of the upper abdomen. Small hiatal hernia. Impression: Acute bilateral pulmonary emboli without right heart strain. Bilateral consolidation, Nodular/patchy consolidation and ground-glass opacity could be secondary to multifocal infection and/or pulmonary ischemia/ infarction. A posttraumatic etiology is considered less likely. Consolidation obscuring metastatic disease could be considered. Right upper lobe nodule measuring 2.3 cm which is favored to be metastatic disease. This document has been electronically signed by: Ciera Boykin MD on 06/23/2024 17:54:13
--- NOTE | ~2024-06-23 | CT_ITS ---
CLINICAL HISTORY: RUQ abd pain fall. metastatic CA CT abdomen and pelvis with contrast Comparison: 04/18/23 Findings: Consolidation in the lung bases. Unremarkable gallbladder and bladder. Subcentimeter low attenuating lesion in the spleen, also present on the prior study. The spleen measures 10.5 cm in craniocaudal dimension, which is within normal limits. The other solid organs are unremarkable. Small hiatal hernia. No bowel wall thickening or dilation. A normal appendix is identified. Colonic diverticulosis. No aneurysm. Mild calcified atherosclerotic disease. No lymphadenopathy. No ascites. No acute osseous abnormality. The lower right ribs are intact. No osseous lesion to indicate metastatic disease. Impression: Consolidation in the lung bases could be secondary to pulmonary ischemia /infarction and/or multifocal infection. No acute findings in the abdomen and pelvis. This document has been electronically signed by: Ciera Boykin MD on 06/23/2024 17:56:46
--- NOTE | ~2024-06-23 | CT_ITS ---
CLINICAL HISTORY: fall CT head without contrast Comparison: MR/SR - MR ANGIO HEAD WO CON - 04/18/22 09:24 EDT MR/SR - MR HEAD/BRAIN WO CON - 02/27/22 11:30 EST Findings: There is a new lesion in the valerie which measures 1.8 x 1.3 x 2.1 cm (measured on series 10, image 21 and series 19, image 66 ) ). The lesion is centrally CSF attenuation likely indicating a cystic component. Peripherally it is increased in attenuation which may indicate blood products. Surrounding decreased attenuation to indicate edema is not definitively visualized. No significant mass effect upon 4th ventricle. No other lesions are identified. No extra-axial fluid collection. No hydrocephalus, midline shift or herniation. Murray-white differentiation is maintained. White matter is within normal limits for age. No acute orbital pathology. No acute soft tissue abnormality. No fracture. Small amount of fluid and foamy secretions in the paranasal sinuses with trace mucosal thickening may indicate sinusitis. The mastoid air cells are clear. Impression: New 2.1 cm cystic lesion in the valerie favored to be metastatic disease given the patient's history of malignancy. Peripheral increased attenuation could be blood. Evaluate further with brain MR with and without contrast, the urgency of which depends on the clinical picture. No significant mass effect upon the 4th ventricle or hydrocephalus. This document has been electronically signed by: Ciera Boykin MD on 06/23/2024 17:40:47
[2024-06-23 10:40] VITALS: BP 139/69; PULSE 99; RESP 18; TEMP 36.8; O2SAT 95; BMI 23.8
--- NOTE | 2024-06-23 12:22 | ED.GENADULT ---
HPI - General Adult General Chief complaint: General Medical Stated complaint: SOB Leg pain Time Seen by Provider: 06/23/24 14:17 Source: patient, family, RN notes reviewed and old records reviewed History of Present Illness ED Provider: Daya Rosario PA-C HPI narrative: 73-year-old female with past medical history CLL, metastatic melanoma on immunotherapy, presenting to the ED complaining of right-sided lower back/side pain s/p mechanical fall at home 6 days ago. Also reports bilateral leg tightness x few days and intermittent SOB x awhile. Admits tripped and fell into bureau, denies head trauma/LOC or symptoms prior to fall including lightheadedness/dizziness. Denies headache, chest pain, abdominal pain, nausea/vomiting. Denies anticoagulation use. Related Data Home Medications ?Medication ?Instructions ?Recorded ?Confirmed lorazepam 0.5 mg tablet 0.5 mg PO DAILY PRN 12/05/22 01/23/23 Allergies Allergy/AdvReac Type Severity Reaction Status Date / Time Penicillins Allergy Hives Verified 06/23/24 10:48 Sulfa (Sulfonamide Allergy Hives Verified 09/13/23 12:29 Antibiotics) Review of Systems Review of Systems: Yes all other systems are reviewed and are negative Constitutional: Constitutional: Reports as per [facility] Past Medical History Attestation statement: The following information was validated with the patient. Source: old records reviewed Social History Social History Patient Tobacco Use Status: Never used Tobacco Smoked in Last 30 Days: No Use of substances other than those prescribed or required for medical reasons: No Advance Directives: No Advance Directives Information Provided: Yes Current occupational status: unemployed Physical Exam ED Vital Signs: Vital Signs - 24 hr 06/23/24 10:40 06/23/24 15:18 06/23/24 15:40 Temperature 98.3 F 98.2 F 98.3 F Pulse Rate 99 88 98 Respiratory Rate 18 14 18 Blood Pressure 139/69 129/69 125/58 L Pulse Oximetry 95 97 96 Oxygen Delivery Method Room Air Room Air Room Air 06/23/24 19:21 06/24/24 00:24 06/24/24 02:28 Temperature 98.2 F Pulse Rate 86 92 91 Respiratory Rate 17 16 20 Blood Pressure 139/72 144/74 H 121/64 Pulse Oximetry 99 96 93 Oxygen Delivery Method Room Air Room Air Room Air 06/24/24 03:25 Temperature 98.2 F Pulse Rate 91 Respiratory Rate 20 Blood Pressure 121/64 Pulse Oximetry 93 Oxygen Delivery Method Room Air BMI result Body Mass Index 23.8 Const General: cooperative and no acute distress Orientation/consciousness: patient oriented x3 Limitations: no limitations HENMT Head: Yes normal to inspection and Yes atraumatic Ears: hearing grossly normal bilaterally General nose exam: Normal external nose present Face and sinus: Yes normal facial exam Eyes General: appearance normal, both eyes and all related structures EOM: EOMs intact bilaterally Neck Neck: Yes normal visual inspection and Yes no meningeal signs Chest Other: +ecchymosis noted to right anterior lateral lower ribs/chest wall with reproducible tenderness. No flail chest. No crepitus. Resp Effort & Inspection: normal respiratory effort and no respiratory distress Auscultation: clear to auscultation bilaterally, no crackles, no rales, no rhonchi and no wheezes Cardio Rate: regular rate Heart sounds: S1 normal heart sound present and S2 normal heart sound present GI Inspection: Yes normal to inspection Palpation (GI): Soft to palpation, Tenderness to palpation present (GI) in the RUQ; with no rebound tenderness, no guarding and not rigid Back/Spine/Pelvis Other: No midline cervical/thoracic/lumbar spinous tenderness/step-off or deformity Skin Rashes: no rashes Wounds: no wounds Neuro General: patient oriented x3, tone normal, moves all extremities, no meningeal signs, no focal motor deficits and CN's II-XI intact bilaterally Cranial nerves: Yes CN's II-XII intact bilaterally Gait exam (Neuro): Normal gait present Extrem Other: 1+ bilaterally General: Yes normal to inspection and Yes edema Course Course Course Narrative: RME performed by Paulina Carlson PA-C. Patient is a 73 year old assigned female at presenting to the emergency department with low back pain after a fall. Detailed physical exam and review of systems are deferred to the finishing wire sawyer. Patient placed back in the waiting room pending room availability and results. -1537--leukocytosis of 67.0 > patient with known CLL. Low suspicion for severe sepsis at this time -AST/ALT elevated, no priors to compare. Troponin 5.3 > will obtain 3 hour repeat -viral testing negative XR lumbar spine 2-3V IMPRESSION: Spondylosis without acute fracture or gross listhesis. US venous duplex LE BI IMPRESSION: Occlusive thrombus extending throughout the interrogated veins of both lower extremities. Positive DVT exam. The certified cytotechnologist communicated with the requesting physician leasing assistant in the emergency department (Paulina Carlson) at the time of the examination. > case discussed with Dr. Kulkarni, vascular, recommended starting heparin. Will wait until head CT results. Patient with known brain mets. 1749--CT head/brain wo IV con Impression: New 2.1 cm cystic lesion in the valerie favored to be metastatic disease given the patient's history of malignancy. Peripheral increased attenuation could be blood. Evaluate further with brain MR with and without contrast, the urgency of which depends on the clinical picture. No significant mass effect upon the 4th ventricle or hydrocephalus. ADDENDUMThis document has been electronically signed by: Ciera Boykin MD on 06/23/2024 17:40:47 ADDENDUM:Peripheral increased attenuation is favored to be enhancement, as contrast was administered for the chest, abdomen and pelvis exams. > will obtain brain MRI with and without contrast for further evaluation >> holding initiating heparin until brain MRI results CT cervical spine wo IV con Impression: No acute findings. 1755--CT angio chest PE protocol Impression: Acute bilateral pulmonary emboli without right heart strain. Bilateral consolidation, Nodular/patchy consolidation and ground-glass opacity could be secondary to multifocal infection and/or pulmonary ischemia/ infarction. A posttraumatic etiology is considered less likely. Consolidation obscuring metastatic disease could be considered. Right upper lobe nodule measuring 2.3 cm which is favored to be metastatic disease. > will obtain blood cultures, lactic and initiate empiric IV antibiotics. Infection now suspected [1800] CT abdomen pelvis w IV con Impression: Consolidation in the lung bases could be secondary to pulmonary ischemia/infarction and/or multifocal infection. No acute findings in the abdomen and pelvis. -1809--ED care transferred to [facility] pending brain MRI & dispo per results Reevaluation(s) Reevaluation #1: Queenie Valdovinos NP date: 06/23/2024 time: 23:00 given the presence of the hemorrhagic lesion within the brainstem I felt it best that I consult with her oncologist before decision is made for heparinization or not. I contacted [facility] as she follows with Dr. Jun Bull, i spoke with fellow Madeleine Sepulveda who ultimately consulted directly with Dr. Bull, it was felt that given the lesion had been previously treated with radiation the risk of hemorrhagic bleeding would be low and recommends starting heparin infusion without a heparin bolus to that she may subsequently be transferred to [facility]. If she were to be started on heparin, our hospitalist service do not feel that she would be a candidate for admission to the medicine floor as she would require frequent neuro checks given the presence of the brainstem lesion. Unfortunately, we do not have ICU beds available at this time. MR Brain with and without gadolinium Comparison: CT/SR - CT HEAD/BRAIN WO IV CON - 06/23/24 16:21 EDT Findings: No restricted diffusion. Left paramedial valerie, peripherally enhancing centrally hemorrhagic lesion measuring 1.5 x 1.7 cm with moderate surrounding vasogenic edema. No additional lesion is seen. No midline shift. No hydrocephalus. Vascular flow voids are intact. Orbital contents are unremarkable. The sinuses and mastoid air cells are clear. No focal bone lesion. IMPRESSION: Left paramedial valerie 1.7 cm peripherally enhancing hemorrhagic lesion with moderate surrounding vasogenic edema. Given patient's history, findings most likely represent solitary metastatic disease. No ventriculomegaly or midline shift. No evidence of acute ischemia or acute intracranial hemorrhage. Queenie Valdovinos NP 06/23/2024 23:45 - myself as well as my attending Dr. Hinojosa had an extensive conversation with patient and her son who was present at bedside regarding the potential risks and complications of heparinization given the presence of her hemorrhagic brain lesion as well as the risks and potential complications of not heparinizing for the treatment of her DVT/PE. We discussed the potentially life-threatening complications of both scenarios. Reviewed that should she begin to experience symptoms of hemorrhagic brain bleeding, that we would offer her treatment with reversal agent protamine sulfate, available in the ED. after extensive conversation, they have made a decision that they would like to pursue starting heparin, and have verbalized the understanding of potential life threatening complications. She will be started on Heparin Low Dose Infusion Protocol. Queenie Valdovinos NP 06/24/2024 00:35 - [facility] is currently close to ICU transfers, will attempt to contact [facility] Queenie Valdovinos NP 06/24/2024 00:45 - [facility] in [place] closed to ICU transfer, Will attempt to contact [facility] Queenie Valdovinos NP 06/24/2024 01:00 - Information provided to [facility] transfer center, awaiting callback Queenie Valdovinos NP 06/24/2024 01:38 - remains on heparin infusion at this time. No focal neurological deficits. Vital signs stable. Queenie Valdovinos NP 06/24/2024 02:04 - spoke with Dr. Regan ICU attending at [facility], patient is accepted for transfer. Reviewed this with patient and her son at bedside they are agreeable to transfer at this time. Will arrange for ALS transfer. Have instructed nursing staff to call report to [phone] Medications Administered Discontinued Medications Generic Name Dose Route Start Last Admin Trade Name Freq PRN Reason Stop Dose Admin Gadobutrol 7.5 ml 06/23/24 20:40 06/23/24 20:41 Gadobutrol 7.5 Ml Vial IVPUSH 06/23/24 20:41 6 ml ONCE ONE Administration Sodium Chloride 500 mls @ 999 mls/hr 06/23/24 18:00 06/23/24 19:55 Ns IV 06/23/24 18:30 Infused .Q31M ILSA Infusion Cefepime HCl 2 gm in 50 mls @ 100 mls/hr 06/23/24 17:59 06/23/24 19:22 Maxipime IV 06/23/24 18:28 Infused ONCE ONE Infusion Heparin Sodium/Sodium Chloride 25,000 unit in 250 mls @ 0 mls/hr 06/24/24 00:15 06/24/24 00:38 Heparin Sodium,Porcine/1/2ns IVCONT 12 units/kg/hr .Q0M ILSA 7.08 mls/hr Administration Protocol Per Protocol Iohexol 85 ml 06/23/24 16:51 06/23/24 16:51 Iohexol 350 Mg/Ml 100 Ml Infus..Btl IV 06/23/24 16:52 85 ml ONCE ONE Administration Medical Decision Making Medical Decision Making MDM Narrative: 73-year-old female with past medical history CLL, metastatic melanoma on immunotherapy, presenting to the ED complaining of right-sided lower back/side pain s/p mechanical fall at home 6 days ago. Also reports bilateral leg tightness x few days and intermittent SOB x awhile. On exam vital signs stable, NAD, nontoxic appearing, lungs CTA, abdomen is soft with RUQ tenderness, ecchymosis noted to right anterior lateral lower ribs without evidence of flail chest. No midline spinous tenderness. 1+ bilateral LE edema noted. Concern for rib fracture vs contusion vs liver laceration/hematoma. Concern for DVT/PE. Rule out pneumonia and CHF. Unlikely ACS/dissection Plan: EKG, labs, viral testing, x-rays, CT, ultrasound, anticipated admission Please refer to course for remaining clinical decision making, interpretation of labs/imaging results, and discussions with consultants and/or family members. Differential Diagnosis Differential Diagnoses: The differential diagnosis associated with the presentation includes As above Admission/Observation Consideration of admission/observation: Escalation of care including admission/observation considered Consult Healthcare Provider Management of the patient was discussed with: Helpdesk Administrator (Vascular) Lab Data MDM Lab Attestation statement: I reviewed the patient's lab results. 06/24/24 00:31 06/23/24 13:01 Labs: Lab Results 06/23/24 06/23/24 06/23/24 Range/Units 13:01 15:18 17:12 WBC 67.0 H* (4.8-10.8) X10*3/uL RBC 3.82 L (4.20-5.50) X10*6/uL Hgb 12.1 (12.0-16.0) g/dl Hct 38.3 (37.0-47.0) % MCV 100.3 H (80.0-98.0) fL MCH 31.7 (27.0-33.0) pg MCHC 31.6 (31.0-35.0) g/dl RDW 15.7 (11.0-16.0) % Plt Count 158 L (160-400) X10*3/uL MPV 10.2 (9.4-12.3) fL Immature Gran % (Auto) Cancelled Neut % (Auto) Cancelled Lymph % (Auto) Cancelled White % (Auto) Cancelled Eos % (Auto) Cancelled Baso % (Auto) Cancelled Lymph # (Auto) Cancelled White # (Auto) Cancelled Eos # (Auto) Cancelled Baso # (Auto) Cancelled Abs Immat Gran (auto) Cancelled Absolute Neuts (auto) Cancelled Absolute Nucleated RBC 0.000 (0.0-0.012) X10*3/uL Nucleated RBC % (auto) 0.0 (0.0-0.2) /100WBC Neutrophils % (Manual) 15 L (45-73) % Band Neutrophils % 8 H (3-5) % Lymphocytes % (Manual) 65 H (20-40) % Atypical Lymphs % (Man) 6 (0-6) % Monocytes % (Manual) 3 (2-11) % Metamyelocytes % 2 % Promyelocytes % 1 % Abs Neuts (Manual) 15.4 H (2.0-8.3) X10*3/uL Lymphocytes # (Manual) 43.6 H (1.2-4.9) X10*3/uL Atyp Lymphs # (Manual) 4.0 x10*3/uL Monocytes # (Manual) 2.0 H (0.1-1.2) X10*3/uL Metamyelocytes # 1.3 X10*3/uL Promyelocytes # 0.7 X10*3/uL Smudge Cells PRESENT Toxic Granulation PRESENT Toxic Vacuolation PRESENT Platelet Estimate NORMAL (NORMAL) Large Platelets PRESENT Plt Morphology Comment NORMAL RBC Morphology NOTED Macrocytosis 1+ (5-14) /OIF Merlin Cells 2+ (3-5) /OIF Schistocytes 2+ (3-5) /OIF Smear Path Review SEE NOTE PT 13.1 H (10.9-12.4) SEC INR 1.1 (0.9-1.1) APTT 25.5 L (26.0-36.8) SEC aPTT Heparin Protocol (53-77.9) SEC Sodium 138 (135-145) mmol/L Potassium 4.7 (3.3-5.1) mmol/L Chloride 104 (96-108) mmol/L Carbon Dioxide 25 (22-29) mmol/L Anion Gap 14 (12-20) BUN 17 H (9-16) mg/dL Creatinine 0.78 (0.5-1.4) mg/dL Estim Creat Clear Calc 50.7 Estimated GFR > 60 Random Glucose 190 H (60-115) mg/dL Lactic Acid (0.5-2.0) mmol/L Calcium 8.6 (8.4-10.2) mg/dL Magnesium 2.1 (1.6-2.6) mg/dL Total Bilirubin 0.5 (0.0-1.0) mg/dL AST 50 H (5-31) U/L ALT 201 H (0-31) U/L Alkaline Phosphatase 81 (39-117) U/L Troponin I High Sens 5.3 4.5 (<3.5-17.0) ng/L B-Natriuretic Peptide 63 (<100) pg/mL Total Protein 6.0 L (6.5-8.0) g/dL Albumin 3.3 L (3.5-5.0) g/dL Influenza Type A (PCR) NEGATIVE (Negative) Influenza Type B (PCR) NEGATIVE (Negative) RSV RNA Qual (PCR) NEGATIVE (Negative) SARS-CoV-2 RNA (RT-PCR) NEGATIVE (Negative) 06/23/24 06/24/24 Range/Units 18:29 00:31 WBC 53.6 H* (4.8-10.8) X10*3/uL RBC 3.46 L (4.20-5.50) X10*6/uL Hgb 11.0 L (12.0-16.0) g/dl Hct 33.6 L (37.0-47.0) % MCV 97.1 (80.0-98.0) fL MCH 31.8 (27.0-33.0) pg MCHC 32.7 (31.0-35.0) g/dl RDW 15.7 (11.0-16.0) % Plt Count 131 L (160-400) X10*3/uL MPV 9.9 (9.4-12.3) fL Immature Gran % (Auto) Neut % (Auto) Lymph % (Auto) White % (Auto) Eos % (Auto) Baso % (Auto) Lymph # (Auto) White # (Auto) Eos # (Auto) Baso # (Auto) Abs Immat Gran (auto) Absolute Neuts (auto) Absolute Nucleated RBC 0.000 (0.0-0.012) X10*3/uL Nucleated RBC % (auto) 0.0 (0.0-0.2) /100WBC Neutrophils % (Manual) (45-73) % Band Neutrophils % (3-5) % Lymphocytes % (Manual) (20-40) % Atypical Lymphs % (Man) (0-6) % Monocytes % (Manual) (2-11) % Metamyelocytes % % Promyelocytes % % Abs Neuts (Manual) (2.0-8.3) X10*3/uL Lymphocytes # (Manual) (1.2-4.9) X10*3/uL Atyp Lymphs # (Manual) x10*3/uL Monocytes # (Manual) (0.1-1.2) X10*3/uL Metamyelocytes # X10*3/uL Promyelocytes # X10*3/uL Smudge Cells Toxic Granulation Toxic Vacuolation Platelet Estimate (NORMAL) Large Platelets Plt Morphology Comment RBC Morphology Macrocytosis /OIF Verona Cells /OIF Schistocytes /OIF Smear Path Review PT 13.2 H (10.9-12.4) SEC INR 1.2 H (0.9-1.1) APTT (26.0-36.8) SEC aPTT Heparin Protocol 25.1 L (53-77.9) SEC Sodium (135-145) mmol/L Potassium (3.3-5.1) mmol/L Chloride (96-108) mmol/L Carbon Dioxide (22-29) mmol/L Anion Gap (12-20) BUN (9-16) mg/dL Creatinine (0.5-1.4) mg/dL Estim Creat Clear Calc Estimated GFR Random Glucose (60-115) mg/dL Lactic Acid 1.4 (0.5-2.0) mmol/L Calcium (8.4-10.2) mg/dL Magnesium (1.6-2.6) mg/dL Total Bilirubin (0.0-1.0) mg/dL AST (5-31) U/L ALT (0-31) U/L Alkaline Phosphatase (39-117) U/L Troponin I High Sens (<3.5-17.0) ng/L B-Natriuretic Peptide (<100) pg/mL Total Protein (6.5-8.0) g/dL Albumin (3.5-5.0) g/dL Influenza Type A (PCR) (Negative) Influenza Type B (PCR) (Negative) RSV RNA Qual (PCR) (Negative) SARS-CoV-2 RNA (RT-PCR) (Negative) Independent Interpretation I performed an independent interpretation of an: EKG (My interpretation EKG normal sinus rhythm rate of 100. LA interval 120. QTC 425. No STEMI.), Plain X-Ray, Ultrasound and CT Scan Radiology Impression Discussion of test interpretation with radiology: I have reviewed the radiologist's reading. Independent Historian Clinical information obtained from an independent historian. History obtained from or confirmed by: Other (son) External Record Review External record reviewed: Inpatient record, Office record, Outpatient record, Prior outpatient labs, Prior outpatient radiology, Primary care record and Outside ED record Tests considered The following testing was considered but not selected: As above Prescription Management I considered prescription management with: Other Chronic Conditions Patient?s care impacted by: Cancer and Other Social Determinants Patient?s care significantly limited by Social Determinants of Health including: Other Social Determinant of Health Critical Care Time Critical Care Time Critical Care Time: Yes Total Critical Care Time: 60 Attestation: I have personally provided critical care time exclusive of time spent on separately billable procedures. Time includes review of lab data, radiology results, discussion with consultants, and monitoring for potential decompensation. Intervention performed as documented. Discharge Plan Discharge Clinical Impression: Bilateral pulmonary embolism, Deep vein thrombosis (DVT) of both lower extremities Patient Disposition: er Acute Care Hospital Transfer Details: [facility] Prescriptions: No Action lorazepam 0.5 mg tablet 0.5 mg PO DAILY PRN Interventions: Acute Care Transfer Worksheet (ED) Last Done: 06/24/24 03:25 Discharge Date/Time: 06/24/24 03:30 Print Language: Rwandan
--- NOTE | 2024-06-23 12:29 | ECG_ITS ---
Test Reason : SOB Blood Pressure : */* mmHG Vent. Rate : 100 BPM Atrial Rate : 100 BPM P-R Int : 120 ms QRS Dur : 66 ms QT Int : 330 ms P-R-T Axes : 76 25 39 degrees QTcB Int : 425 ms Normal sinus rhythm Normal ECG No previous ECGs available Referred By: Paulina Carlson Electronically Signed By: Jorge Ruiz
--- OUTSIDE RECORDS SUMMARY | 2024-06-23 13:03 | XMS_ITS | Data Portability ---
Author Organization [place] [facility], [facility] Address [address] [place] [address] Assessment Encounter Date Assessment Date Assessment LastModified by Organization Details LastModified Time 11/05/2018 11/05/2018 X-Rays: AP, axillary, and outlet x-rays of the right shoulder ordered, performed, and interpreted by me today showed no significant bony abnormalities. Right likely supraspinatus tear. Left shoulder adhesive capsulitis, resolved. Plan: Discussed treatment options. She cannot take NSAIDs. There may be a detrimental effect to a steroid injection in the face of rotator cuff tear. It may enlarge the tear and I would not recommend blindly doing the injection. We gave her prescription for rehab therapy. If it is too painful to do the therapy exercises, she can take a Medrol Dosepak or we can do a steroid injection concomitantly with an MRI to ensure we are not making her worse by masking a large tear. Discussed surgical intervention as she has not improved to her satisfaction. If no improvement, consider injection and MRI. Not available 11/05/2018 18:25:29 Plan of Treatment Reminders Order Date Submit Date Provider Last Modified By Organization Details Last Modified Time Details Appointments None recorded. Lab None recorded. Referral physical therapist referral - Modalities and dry needling PRN Where able, please utilize [facility] for continued care. This referral for Rehabilita tion may include treatment performed by an ATC, OT, PT, or SHADING PAINTER in accordance with their state practice act. 2018 019 [email or web address] Not available 9 11:51:23 Procedures None recorded. Surgeries None recorded. Imaging XR, shoulder, 2 or more view 2018 019 [email or web address] [facility], [address], [place], [address], 9 17:28:06 Medication Orders None recorded. Patient TargetsNo targets recorded. Patient InstructionsNo instructions recorded. Reason for Referral Physical Therapist Referral for Impingement syndrome of shoulder region Modalities and dry needling PRN Where able, please utilize [facility] for continued care. This referral for Rehabilitation may include treatment performed by an ATC, OT, PT, or SHADING PAINTER in accordance with their state practice act. HEP Referring Physician: Heber Mace, Orthopedic Surgery, Encounter Date: 11/05/2018 Results Created Date Observation Date Name Description Value Unit Range Abnormal Flag Note LastModifiedBy Organization Detail LastModifiedTime 11/06/19 19 XR, shoul rahul, 2 or more view StudyI [facility] eUID=1 [id number] [id number]. 0 INTERFACE [facility] [address], [place], [address], 11/05/2018 13:40:07 Result Notes None recorded. Problems Name Problem SNOMED Code Status Onset Date Resolution Date Notes Provider Name and Address Organization Details Recorded Time Adhesive capsuliti s of left shoulder 71124868544 9107 Active 2016 Not Available [facility] 7 00:39:30 Impingeme nt syndrome of shoulder region 262890327 Active 2016 Not Available [facility] 7 00:39:30 Impingeme nt syndrome of shoulder region 304485784 Active 2018 Heber Mace MD [address], [place], [address] , [facility] 9 14:31:20 Subacromi al impingeme nt 103465883 Active 2018 Heber Mace MD [address] [facility], [place], [address] , [facility] 9 14:32:36 Problem Notes None recorded. Procedures Surgical History Date Name Laterality Status Provider Name and Address Organization Details Recorded Time Other completed Pedro JACOBS [facility] [place] 11/05/2018 15:25:12 Imaging Results Imaging Date Name Status LastModified by Organiz ation Details LastModified Time 11/05/2018 XR, shoulder, 2 or more view completed INTERFACE [facility] [address], [place], [address], 11/05/2018 13:40:07 Procedure Notes None recorded. Medical Equipment None Reported. Allergies Allergen ID Allergen Name Allergen Category Reaction Reaction Severity Criticality Documentation Date Start Date Code Code System Note Provider Name and Address Organization Details Recorded Time 190758 Product containin g penicilli n (product) medicatio n Not available Not available Not available 11/05/2018 11904 [facility] [place] 9 15:17:48 203195 Substance with sulfonami de structure and antibacte rial mechanism of action (substanc e) medicatio n Not available Not available Not available 11/05/2018 20231 8003 SNOMED [facility] [place] 9 15:17:59 Medications Name Sig Start Date Stop Date Status Note LastModified by Organization Details LastModified Time clindamycin HCl 300 mg capsule active Not Available Not Available Not Available azithromycin 250 mg tablet active Not Available Not Available Not Available Xanax 2 mg tablet 2016 active Not Available Not Available Not Avai lable Medrol (Rito) 4 mg tablets in a dose pack Please take as directed on patient instruction s 2016 active Not Available Not Available Not Avai lable prednisone 20 mg tablet active Not Available Not Available Not Available triamcinolon e acetonide 0.1 % topical cream active Not Available Not Available Not Available alprazolam 0.5 mg tablet active Not Available Not Available Not Available alprazolam 0.25 mg tablet active Not Available Not Available Not Available erythromycin 5 mg/gram (0.5 %) eye ointment active Not Available Not Available Not Available cefdinir 300 mg capsule active Not Available Not Available N ot Available cholecalcife rol (vitamin D3) 50 mcg (2,000 unit) tablet 2016 active Not Available Not Available Not Avai lable Green Tea (with Metabolic Enhancer Blend) 250 mcg-775 mg tablet 2016 active Not Available Not Available Not Avai lable Vitals None Recorded Social History Question Answer Notes LastModified by Organizat ion Details LastModified Time Tobacco Smoking Status Unknown If Ever Smoked Pedro Man [place], [place] - [facility] 11/05/2018 15:20:27 How Much Tobacco Do You Chew? None [email or web address] Information not available 11/05/2018 Which Illicit Or Recreational Drugs Have You Used? Yes, Did Not Specify [email or web address] Information not available 11/05/2018 Have You Ever Served In The [place] [employer]? No [email or web address] Information not available 11/05/2018 Marital Status Single Informatio n not available 11/05/2018 How Much Tobacco Do You Smoke? No [email or web address] Information not available 11/05/2018 Sex: Unknown Functional Status Question Answer Note LastModified by Organization D etails LastModified Time What is your level of alcohol consumption? Moderate [email or web address] Information not available 11/05/2018 Mental Status None recorded. Family History Relationship Description Onset Age of this Age Resolved Age Notes LastModified by Organization Details LastModified Time Mother History of hypertension [email or web address] Not available 02/2018 15:18:44 Mother Osteoarthrit is [email or web address] Not available 2018 15:19:07 Mother Osteoporosis Not avai lable 11/05/2018 15:19:16 Mother Diabetes mellitus [email or web address] Not available 2018 15:19:28 Mother Pulmonary embolism [email or web address] Not available 2018 15:19:44 Mother Bleeding [email or web address] Not availabl e 11/05/2018 15:20:09 Father History of hypertension [email or web address] Not available 02/2018 15:18:44 Father Family history of stroke [email or web address] Not available 2018 15:18:53 Father Osteoarthrit is Not available 2018 15:19:07 Father Diabetes mellitus [email or web address] Not available 2018 15:19:28 Medical History Condition Response HIV or AIDS N Coronary Artery Disease N Gout N Atrial Fibrillation N Blood Transfusion N Emphysema/COPD N Depression Y Pneumonia N High Blood Pressure/Hypertension N TIA N Hemophilia N Infections - MRSA N Blood Clot - Lungs N Cystic Fibrosis N Blood Clot N Cancer Y Bleeding Ulcers N High Cholesterol N Muscular Dystrophy N Rheumatoid Arthritis N Fibromyalgia Y Liver Failure N Kidney Disease N Malignant Hyperthermia N Osteoarthritis N Acid Reflux N Adverse Reaction to Anesthesia N Parkinson's Disease N Other Issues Not Listed N Alzheimers N Esophageal Varices N Joint Pain N Skin Problems N Anemia N Psychiatric Disorder N Brain Injury N Home Oxygen N Blood Clot - Legs N Irregular Heart Beat N Heart Attack ([place]) N Bladder Problems N Infection N Down Syndrome N Thyroid Issue N Diabetes N Angina/Chest Pain N Sickle Cell N Cancer - Chemotherapy N Congestive Heart Failure (CHF) N Asthma N Dental Disease N Epilepsy/Seizures N Sleep Apnea N Stroke/CVA N Cirrhosis N Pulmonary Embolism N Kidney Disease - Dialysis N Osteoporosis N Sleep Apnea - CPAP Machine N Gynecological HistoryNo gynecological history recorded. Obstetrics History GPAL:G 0 P 0 0 0 0 Past Encounters Encounter ID Performer Location Encounter Start Date Encounter Closed Date Diagnosis/Indication Diagnosis SNOMED-CT Code Diagnosis ICD10 Code Diagnosis Note [id number] Heber Mace MD [address] [address] [place] [address] 11/05/2018 12:51:55 11/05/2018 15:31:48 Pain of shoulder region 48991604 M25.511 Impingemen t syndrome of shoulder region 871664023 M75.41 Subacromia l impingement 765206540 M75.41 Health Concerns Section Related Observation LastModified by Organization Detai ls LastModified Time None Recorded Concern Status LastModified by Organization Details LastModified Time None Recorded Advance Directives Directive None Recorded Payers Insurance Date Sequence Insurance Name Policy Number Policy Paulson Covered Member ID Paulson Member ID Guarantor Name 11/05/2018 2 [employer] INS[employer]ANCE [employer] (MEDICARE SUPPLEMENT) Xin Compa [id number] Xin Hernandezsimons 12/02/2018 1 [place] Angella Chatman [id number] Xin Compa Notes Date Note Type Note Provider Name and Address Organization Details Recorded Time 11/05/2018 text/html She returns toda y in follow up with a new problem, right shoulder pain. Her left shoulder is doing better, where she had a frozen shoulder. We gave her a glenohumeral injection for that in March of 2016. Her right shoulder began bothering her in the lateral aspect in July 2018. She saw a chiropractor, who helped scapular pain, but not arm pain. She has CLL and platelet dysfunction and cannot take NSAIDs. Pain varies from 2/10 to 9/10 in severity in the anterolateral shoulder. It is aching and stabbing in character. It is worse with lifting and reaching. Past medical history, past surgical history, allergies, medication, family history, social history were reviewed. Heber Mace MD [address], [place], [address], [facility] - [facility] 04/17/2024 13:31:43 OBGyn Episode No OBEpisode recorded.
--- OUTSIDE RECORDS SUMMARY | 2024-06-23 13:03 | XMS_ITS ---
Author Organization [facility] Address [address] [place] [address] Care Team Providers Care Obiee Obia Solution Architect Name Role Phone Abby Foster Primary Care Provider Unavailab Martha Ratliff Unavailable [phone] Tarik Nayak [phone] Encounters Encounter Location Date Provider Diagnosis [facility] [address] [place] [address] 08/13/2023 Tarik Nayak Plan Of Treatment No Information Progress Notes * Angella CHATMAN ADOB: (73 yo F)Acc No.[id number]:08/13/2023 Progress Note Patient:?Dali CHATMAN Provider:?Tarik Nayak DPM :1950???Age:72 Y???Sex:Female D ate:08/13/2023 Address:[address] [id number] Pcp:Abby Foster Subjective: * Chief Complaints: * ??? * Medical History:? Objective: * Vitals:? Assessment: Plan: * Treatment: * Images: * The named appointment provid er may or may not be the originator of this progress note, and it is not deemed complete until electronically signed by the appointment provider. Sign off status: Pending * Provider:?Tarik Nayak DPM Date:? 024 Generated for Sergio higginbotham/Priyanka/Roloitting on:?06/23/2024 01:02 PM EDT
--- OUTSIDE RECORDS SUMMARY | 2024-06-23 13:03 | XMS_ITS | Data Portability ---
Author Organization [facility] S pecialGUALBERTO santacruz ALPH[facility]EFF [facility] - [facility] Address [address] [facility] [place] [address] Assessment No assessment recorded. Plan of Treatment Reminders Order Date Submit Date Provider Last Modified By Organization Details Last Modified Time Details Appointments None recorded. Lab None recorded. Referral None recorded. Procedures None recorded. Surgeries None recorded. Imaging audiogram + tympanogra m 2020 021 [email or web address] [place] [address], [place], [address], 1 15:58:28 audiogram 2019 020 MARY [place] [address], [place], [address], 0 13:53:35 audiogram 2017 018 [email or web address] [place] [address], [place], [address], 8 15:36:40 tympanogra m 2017 018 [email or web address] [place] [address], [place], [address], 8 15:36:40 Medication Orders Zithromax Z-Rito 250 mg tablet 2019 020 INTERFACE Not available 0 14:37:35 Patient TargetsNo targets recorded. Patient Instructions Encounter Date Encounter Id Patient Instructions Last Modified By Organization Details Last Modified Time 07/31/2017 [id number] 1. f/dejan 2. Annual audio 3. HAC in 6 months [email or web address] Not available 07/31/2017 15:01:13 Reason for Referral None Reported. Results Created Date Observation Date Name Description Value Unit Range Abnormal Flag Note LastModifiedBy Organization Detail LastModifiedTime 08/01/19 18 07/31/2017 tympa nogra m Right Type A Normal Not Available [place] [address], [place], [address], 07/31/2017 15:00:19 08/01/19 18 07/31/2017 tympa nogra m Left Type A Normal Not Available [place] [address], [place], [address], 07/31/2017 15:00:19 08/01/19 18 07/31/2017 audio gram Results: See Eyad zavala Result s Not Available [place] [address], [place], [address], 07/31/2017 15:00:17 08/01/19 18 audio gram No [...] Details Recorded Time Sensorineu ral hearing loss 76025909 Active 2015 Not Available [facility] 7 09:39:51 Tinnitus of left ear 0162260574496 Active 2015 Not Available [facility] 7 09:39:51 Eustachian tube disorder 51509641 Active 2015 Not Available [facility] 7 09:39:51 Sensorineu ral hearing loss 80337825 Active 2014 Not Available [facility] 7 09:39:55 Deviated nasal septum 475268186 Active 2014 Not Available [facility] 7 09:39:55 Chronic rhinitis 80794178 Active 2014 Not Available [facility] 7 09:39:55 Impacted cerumen 44971256 Active 2015 Not Available [facility] 7 09:39:55 Tinnitus of left ear 2418457403723 Active 2015 Not Available [facility] 7 09:39:55 Dizziness and giddiness 590217869 Active 2015 Not Available [facility] 7 09:39:55 Problem Notes None recorded. Procedures Surgical History Date Name Laterality Status Provider Name and Address Organization Details Recorded Time 0 Audiogram Results 99608 completed DEBBIE JACOBS [facility]. 03/20/2019 16:43:25 0 Tympanogram Results 57620 completed DEBBIE JACOBS [facility]. 03/20/2019 16:43:35 8 Hearing Aid Fitting Follow Up completed DEBBIE JACOBS [facility]. 07/31/2017 14:58:17 8 Hearing Aid Fitting Follow Up completed DEBBIE JACOBS [facility]. 07/24/2017 14:09:14 7 Hearing Aid Fitting Follow Up completed DEBBIE JACOBS [facility]. 01/11/2017 14:28:39 7 Hearing Aid Fitting Follow Up completed DEBBIE JACOBS [facility]. 09/12/2016 16:18:31 7 Audio Results completed DEBBIE JACOBS [facility]. 09/12/2016 16:16:25 Imaging Results Imaging [...] Name and Address Organization Details Recorded Time 016347 Product containin g penicilli n (product) medicatio n Not available Not available Not available 07/12/20162014 71307 8001 SNOMED Not Available [facility] 7 08:27:43 193822 Substance with sulfonami de structure and antibacte rial mechanism of action (substanc e) medicatio n Not available Not available Not available 07/12/20162014 60669 8003 SNOMED Not Available [facility] 7 08:27:43 889679 Levaquin medicatio n Not available Not available Not available 09/01/2016 53187 2 RxNorm ANGELINA huddleston [facility]. 7 11:12:58 Medications Name Sig [...] Relief 50 mcg/actuati on nasal spray,suspe nsion Clark 2 sprays every day by intranasa l [...] /min 121 mm[Hg] 71 mm[Hg] ANGELINA JOSE [place] - [facility]. 03/20/2019 13:42:28 Date Recorded Body height Provider Name an d Address Organization Details Last Updated DateTime 09/15/2020 160.02 cm Maria Luisa Hernandez [facility]. 09/15/2020 11:22:25 Social History Question [...] Hives N Hospital Admission Other Than N Glaucoma N Wheezing N Depression Y COPD N Pneumonia N Developmental or Behavioral Disorders [...] N Acid Reflux (GERD) N Cancer Y Snoring N Stroke N Melanoma Y Hoarseness N Bladder or Kidney Problems Y Shortness of Breath N High Cholesterol N Skin Cancer N Headaches Y Fibromyalgia Y Speech Delay N Kidney Disease N Allergies/Hayfever N Pituitary Disorder N Squamous Cell Carcinoma N Heart Conditions N Migraines Y Thyroid Problems N Developmental Delay N ADD/ADHD N Skin Problems N Anemia N Immune System Disorder N Constipation N Heart Attack ([place]) N Other Skin Condition N Mental Illness N Diabetes Y Bedwetting N Bleeding Disorder Y Food Allergy N Seizures/Epilepsy N Epistaxis N Tuberculosis N AIDS/HIV N Eczema N Tinnitus N Nasal polyps N Asthma N Basal Cell Carcinoma Y Vertigo N [...] SNOMED-CT Code Diagnosis ICD10 Code Diagnosis Note [id number] ERIC Nathan [place] - [address] [address] 09/01/2016 10:44:46 09/01/2016 11:47:17 Eustachian tube disorder 71524565 H69.92 [id number] ERIC Nathan [place] - [address] [address] 09/11/2016 10:33:32 09/11/2016 12:52:47 Eustachian tube disorder 68573443 H69.92 Sensorineu ral hearing loss of bilateral ears 344850915 H90.3 Anterior c ervical lymphadenopathy 259109844 R59.0 [id number] DEBBIE MORALES CCC-A, [facility] [place] [facility] - [address] [address] 09/12/2016 14:05:29 09/14/2016 08:24:49 Sensorineural hearing loss 02678164 H90.5 Sensorineu ral hearing loss of bilateral ears 815816681 H90.3 [id number] DEBBIE MORALES CCC-A, [facility] [place] - [address] [address] 01/11/2017 12:56:14 01/11/2017 15:27:13 [id number] DEBBIE MORALES CCC-Elvia, [facility] [place] - [address] [address] 07/24/2017 13:01:54 07/30/2017 03:46:22 [id number] DEBBIE MORALES CCC-A, [facility] [place] - [address] [address] 07/24/2017 13:02:10 07/29/2017 21:25:40 [id number] [facility] CAL[facility]IN MORALES, [facility] - [address] [facility] [address] [place] [address] 07/31/2017 14:20:59 07/31/2017 15:36:39 Sensorineural hearing loss of bilateral ears 684572299 H90.3 [id number] Ric Valero MD [facility] [address] [address] 03/20/2019 13:17:37 03/20/2019 14:56:32 Asymmetrical hearing loss 791002510 H91.92 very min asymmetry, testing with less asymmetry than expected by symptoms. will have hearing aids adjusted and have f/u with audiology. tentative f/u with me in 3 mos Sensorineu ral hearing loss of bilateral ears 365435704 H90.3 Otalgia of left ear 1089 156912 305639 H92.02 No infection noted. minimal erythema over the malleus but no middle ear fluid or pus. zpack with worsening (GI upset with omnicef in the past) [id number] [facility]E [facility] M[facility]AL[facility]-Elvia, [facility] - [address] [address] 03/20/2019 14:13:05 03/20/2019 16:08:01 Sensorineural hearing loss of bilateral ears 760381004 H90.3 [id number] Ric Valero MD [facility] [address] [address] 09/15/2020 11:16:13 09/16/2020 08:05:21 Sensorineural hearing loss 84408157 H90.5 cont CONTRERAS use. past audios reviewed Otalgia of right ear 706 0752461 584922 H92.01 intermitte nt. no clear etiology. unable to take NSAIDs. Conservati ve measures were discussed. consider imaging, discussed, hold off currently. she is moving soon ([facility]). plans to f/u here prn. would get imaging with persistent pain. Health Concerns Section Related Observation LastModified by Organization Detai ls LastModified Time None Recorded Concern Status LastModified by Organization Details LastModified Time None Recorded Advance Directives Directive None Recorded Payers Insurance Date Sequence Insurance Name Policy Number Policy Paulson Covered Member ID Paulson Member ID Guarantor Name 02/17/2021 2 [employer] Angella Chatman [id number] Angella Chatman 02/18/2021 1 [place] Angella Chatman [id number] Angella Chatman Notes Date Note Type Note Provider Name [...] audiology. Ct with CLL ARLENE Weiss - [facility]. 03/20/2019 15:14:35 09/15/2020 text/html 69 y/o female present today for hearing loss. sees audiology intermittently, has HAs. needs updated audio. some intermittent right otalgia, present for years, melissa if she presses on the area. has seen other providers as well. not nec bothersome when sleeping on it. ARLENE Weiss - [facility]. 09/15/2020 12:25:03 OBGyn Episode No OBEpisode recorded.
--- OUTSIDE RECORDS SUMMARY | 2024-06-23 13:03 | XMS_ITS ---
Author Organization [facility] Address [address] [place] [address] Care Team Providers Care Lead Android Developer Name Role Phone Abby Foster Primary Care Provider Unavailab Martha Ratliff Unavailable [phone] REASON FOR VISIT cx 12:45 appt Encounters Encounter Location Date Provider [facility] [address] [place] [address] 08/07/2023 Martha Ureña Plan Of Treatment No Information Progress Notes * Angella CHATMAN ADOB: (72 yo F)Acc No.[id number]:08/07/2023 Patient:?Dali Chatman :1950???Age:72 Y???Sex:Female Address:[address], [place], [address] * true * Date:? Generated for Printi nefatly/Priyanka/eTransmitting on:?06/23/2024 01:03 PM EDT
--- OUTSIDE RECORDS SUMMARY | 2024-06-23 13:03 | XMS_ITS | Patient Health Record ---
Author Organization [facility] Address [address] [place] [address] Care Team Providers Care It Project Coordinator Name Role Phone Kristin Abby Primary Care Provider Unavailab Martha Ratliff Unavailable [phone] Tarik Nayak Unavailable [phone] Allergies Allergen (clinical drug ingredient) Drug/Non Drug Allergy documented on EMR Reaction Allergy Type Onset Date Status ciprofloxacin Cipro Unknown Drug Allergy Act yifan Levaquin Unknown Drug Allergy Active Adhesive Unknown Allergy Active Penicillin Unknown Drug Allergy Active Reason For Referral No Information Medications Medication SIG (Take, Route, Fr equency, Duration) Notes Start Date End Date Status Papaya Active Vitamin D Active Fosamax 70 MG 1 tablet 30 minutes before the first food, beverage or medicine of the day with plain water Orally for 30 day(s) Not-Taking Calcium + D Active Xanax PRN Active Immunizations Vaccine Route Administration Date Status Comme nts COVID-19 Moderna Vaccine Unknown 10/06/2020 Administered 1st 02/19/2020 2nd 03/19/2020 Influenza Unknown 10/06/2020 Administered Influenza Unknown 10/06/2021 Administered Social History Tobacco Use: Social History Observation Description Date Details (start date - stop date) Former Smoker NA - NA Tobacco Use/Smoking Question Answer Notes Are you a: former smoker Additional Findings: Tobacco Non-User Current no n-smoker Alcohol Screen Question Answer Notes Did you have a drink contain ing alcohol in the past year? Yes How often did you have a dri nk containing alcohol in the past year? Monthly or less (1 point) Points 1 Interpretation Negative Tobacco use other than smoking: Question Answer Notes Are you an other tobacco user? 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 Encounters Encounter Location Date Provider Diagnosis [facility] [place] [address] [place] [address] 08/07/2023 Martha Ureña Plan Of Treatment Pending Test Test Name Order Date X ray : Foot, left 3V 01/26/2021 18013, [id number] INJECT or DRAIN, JOINT/BUR SA 07/26/2022 X ray : Ankle, right 3V 07/12/2022 Insurance Providers Payer Name Payer Address Payer Phone Subscriber Number Group Number Insured Name Patient Relationship to Insured Coverage Start Date Coverage End Date Medicare National Govt [employer] [address] [place] [address] [id number] Angella Boateng Self - patient is the insured [employer] [address] [place] [address] [id number] Angella Boateng Self - patient is the insured Medical (General) History Medical History History ICD Code Anxiety Arthritis Back,Hip,and Knee pain Cancer Cataracts Depression Fibromyalgia Headaches/Migraines Osteoporosis chronic sinusitis Leukemia pre-diabetic Surgical History Surgery Date(Month/Year) section 1983,1985 melanoma wide excision 2012 cataract surgery 2022
[2024-06-23 13:09] LABS: Hematocrit 38.3 % (37.0-47.0); Hemoglobin 12.1 g/dl (12.0-16.0); Mean Corpuscular HGB Conc 31.6 g/dl (31.0-35.0); Mean Corpuscular Hemoglobin 31.7 pg (27.0-33.0); Mean Corpuscular Volume 100.3 fL (80.0-98.0); Mean Platelet Volume 10.2 fL (9.4-12.3); Platelet Count 158 X10*3/uL (160-400); Red Blood Count 3.82 X10*6/uL (4.20-5.50); Red Cell Distribution Width 15.7 % (11.0-16.0); WBC ABN SCTR FOR CBC 1
[2024-06-23 13:27] LABS: Alanine Aminotransferase 201 U/L (0-31); Albumin Level 3.3 g/dL (3.5-5.0); Alkaline Phosphatase 81 U/L (39-117); Anion Gap 14 (12-20); Aspartate Amino Transferase 50 U/L (5-31); B Type Natriuretic Peptide 63 pg/mL (<100); Bilirubin Total 0.5 mg/dL (0.0-1.0); Blood Urea Nitrogen 17 mg/dL (9-16); Calcium 8.6 mg/dL (8.4-10.2); Carbon Dioxide 25 mmol/L (22-29); Chloride 104 mmol/L (96-108); Creatinine Clr Calc Pharmacy 50.7; Estimated Glomerular Filt Rate > 60; Glucose Random 190 mg/dL (60-115); Magnesium 2.1 mg/dL (1.6-2.6); Potassium 4.7 mmol/L (3.3-5.1); Sodium 138 mmol/L (135-145); Troponin-I High Sensitivity 5.3 ng/L (<3.5-17.0)
[2024-06-23 13:32] LABS: Atypical Lymphs Percent Manual 6 % (0-6); Band Neutrophils Percent 8 % (3-5); Lymphocytes Absolute Manual 43.6 X10*3/uL (1.2-4.9); Lymphocytes Percent Manual 65 % (20-40); Metamyelocytes Absolute 1.3 X10*3/uL; Metamyelocytes Percent 2 %; Monocytes Percent Manual 3 % (2-11); Neutrophils Absolute Manual 15.4 X10*3/uL (2.0-8.3); Neutrophils Percent Manual 15 % (45-73); Promyelocytes Absolute 0.7 X10*3/uL; Promyelocytes Percent 1 %
[2024-06-23 13:38] LABS: Macrocytosis 1+ (5-14) /OIF; Platelet Estimate NORMAL (NORMAL); Platelet Morphology Comment NORMAL; RBC Morphology NOTED
[2024-06-23 13:39] LABS: Large Platelet PRESENT; Schistocytes 2+ (3-5) /OIF
[2024-06-23 13:40] LABS: Burr Cells 2+ (3-5) /OIF
[2024-06-23 13:41] LABS: Smudge Cells PRESENT; Toxic Granulation PRESENT; Toxic Vacuolation PRESENT
[2024-06-23 13:46] LABS: Influenza A PCR NEGATIVE (Negative); Influenza B PCR NEGATIVE (Negative); Resp Syncy Virus RNA Qual PCR NEGATIVE (Negative); SARS COV2 PCR INHOUSE NEGATIVE (Negative)
[2024-06-23 15:18] VITALS: BP 129/69; PULSE 88; RESP 14; TEMP 36.8; O2SAT 97
--- NOTE | 2024-06-23 15:18 | PC.NURSE ---
a&ox4. vss and up to date. nsr on the pattern assembler. on RA w/o difficulty. hx stage 4 metastatic melanoma. pt presents to the ED c/o increased sob and bilateral LE swelling x 1 week. 3+ pitting edema noted in LE bilat. no sob/wob noted. respirations even/unlabored. ultrasound completed prior to coming back from triage. +bilateral DVTs. pt seen by ED provider - notified/aware of plan of care. PE protocol ordered. portacath accessed in right side of chest - patent/intact. power port. labs obtained/sent to lab. pt waiting for CT to be completed at this time. plan of care ongoing.
[2024-06-23 15:36] LABS: INTERNATIONAL NORM RATIO 1.1 (0.9-1.1); Prothrombin Time 13.1 SEC (10.9-12.4)
[2024-06-23 15:39] LABS: Partial Thromboplastin Time 25.5 SEC (26.0-36.8)
[2024-06-23 15:40] VITALS: BP 125/58; PULSE 98; RESP 18; TEMP 36.8; O2SAT 96
[2024-06-23] MEDS: iohexoL 350 MG/ML 100 ML INFUS..BTL 85 ML IV (16:51)
[2024-06-23 17:37] LABS: Troponin-I High Sensitivity 4.5 ng/L (<3.5-17.0)
--- NOTE | 2024-06-23 18:10 | PC.NURSE ---
MRI screen form filled out. tiger photo sent as MRI's fax machine is down. form placed in pt's chart.
[2024-06-23] MEDS: cefEPime HCl/D5W 2 GM/50 ML PIGGYBACK IV (18:30)
[2024-06-23] MEDS: 0.9 % Sodium Chloride 500 ML 999 ML IV (18:30)
--- NOTE | 2024-06-23 18:45 | PC.NURSE ---
additional 20gIV placed in the right AC - labs obtained/sent to lab. IVF/abx administered per provider order. provider bedside discussing w/ pt and pt's son in regards to CT results. patient/family member notified/aware of plan of care. plan of care ongoing. call luciano placed within reach.
[2024-06-23 18:52] LABS: Lactic Acid 1.4 mmol/L (0.5-2.0)
[2024-06-23 19:21] VITALS: BP 139/72; PULSE 86; RESP 17; O2SAT 99
--- NOTE | 2024-06-23 19:56 | PC.NURSE ---
pt off unit for MRI
[2024-06-23] MEDS: gadobutroL 7.5 ML VIAL IVPUSH (20:41)
--- NOTE | 2024-06-23 20:53 | PC.NURSE ---
pt back from MRI. resting comfortably at this time
[2024-06-24 00:24] VITALS: BP 144/74; PULSE 92; RESP 16; TEMP 36.8; O2SAT 96
[2024-06-24 00:36] LABS: Hematocrit 33.6 % (37.0-47.0); Mean Corpuscular HGB Conc 32.7 g/dl (31.0-35.0); Mean Corpuscular Hemoglobin 31.8 pg (27.0-33.0); Mean Corpuscular Volume 97.1 fL (80.0-98.0); Mean Platelet Volume 9.9 fL (9.4-12.3); Platelet Count 131 X10*3/uL (160-400); Red Blood Count 3.46 X10*6/uL (4.20-5.50); Red Cell Distribution Width 15.7 % (11.0-16.0)
[2024-06-24] MEDS: Heparin Sodium,Porcine/1/2NS 25,000 UNIT/250 ML IV.SOLN 7.08 UNIT IVCONT (00:38)
[2024-06-24 00:44] LABS: INTERNATIONAL NORM RATIO 1.2 (0.9-1.1); Prothrombin Time 13.2 SEC (10.9-12.4)
[2024-06-24 00:46] LABS: PTT Heparin Drip 25.1 SEC (53-77.9); White Blood Count 53.6 X10*3/uL (4.8-10.8)
--- NOTE | 2024-06-24 00:54 | PC.NURSE ---
heparin drip started. pt aware of risks and concerns related to brain bleed. son at bedside, call ankita w/in reach
[2024-06-24 02:28] VITALS: BP 121/64; PULSE 91; RESP 20; O2SAT 93
--- NOTE | 2024-06-24 02:40 | PC.NURSE ---
nurse to nurse report given to CO[employer] MANAGER
[2024-06-24 03:25] VITALS: BP 121/64; PULSE 91; RESP 20; TEMP 36.8; O2SAT 93
== END 2024-06-24 03:30 | disposition short-term general hospital (02) ==
PROVIDERS: Nurse Practitioner Family; Physician Assistant; Physician Assistant Medical; Emergency Provider Emergency Medicine; PCP Internal Medicine Hematology
DX: I26.99 Other pulmonary embolism without acute cor pulmonale (principal); I82.403 Acute embolism and thrombosis of unspecified deep veins of lower extremity, bilateral; R60.0 Localized edema; M54.50 Low back pain, unspecified; R06.02 Shortness of breath; Z03.818 Encounter for observation for suspected exposure to other biological agents ruled out; C79.2 Secondary malignant neoplasm of skin
CPT/HCPCS: 0241U; 36415; 70450; 70553; 71275; 72100; 72125; 74177; 80053; 83605; 83735; 83880; 84484; 85007; 85027; 85610; 85730; 87040; 93005; 93970; 96361; 96374; 96375; 99285; A9585; J0692; J1644; Q9967

== ENCOUNTER → 2024-06-23 12:26 | Outpatient (BNV) | payer MEDICARE, OTHER, SELFPAY | PROVIDERS: PCP Internal Medicine Hematology; Visit Provider Radiology Diagnostic Radiology | DX: G93.6 Cerebral edema (principal); R10.11 Right upper quadrant pain; I26.09 Other pulmonary embolism with acute cor pulmonale; M54.2 Cervicalgia; G93.0 Cerebral cysts; R22.43 Localized swelling, mass and lump, lower limb, bilateral; M47.817 Spondylosis without myelopathy or radiculopathy, lumbosacral region | CPT/HCPCS: 72100; 93970 ==

== ENCOUNTER → 2024-06-23 12:29 | Outpatient (BNV) | payer MEDICARE, OTHER, SELFPAY | PROVIDERS: Emergency Provider Emergency Medicine; PCP Internal Medicine Hematology; Visit Provider Internal Medicine Cardiovascular Disease | DX: R06.02 Shortness of breath (principal) | CPT/HCPCS: 93010 ==